=== PATIENT | female | born 1930 | race Caucasian/White ===

== ENCOUNTER 2016-11-11 08:17 | Emergency (ER) | payer OTHER, BC ==
[2016-11-11 08:22] VITALS: TEMP 98; BMI 30.9
--- NOTE | 2016-11-11 08:57 | PDOC ---
History of Present Illness - General History Source: Patient Exam Limitations: No Limitations - History of Present Illness Initial Comments: 11/11/16 08:59 The patient is a 89-year-old woman, accompanied by daughter, with a significant past medical history of hypertension, hypercholesterolemia, atrial fibrillation (on Eliquis), overactive bladder who presents to the emergency department for further evaluation for a possible allergic reaction. Patient states that she underwent an outpatient CTA, at approximately 12:45 PM, yesterday, as ordered by her [employer], Dr. Dashawn Doran. She received IV contrast. She states that she does not recall ever receiving IV contrast in the past. She woke up throughout the middle of the night with an itchy face. This morning, she woke up with worsening facial itchiness and felt as if her jaw was stiff. She denies any speech/swallowing difficulty. She now states that the itchy sensations have radiated up to her head. As per daughter, the patients face is swollen and red. She denies eating new foods. She denies exposure to new detergents/soaps.. She denies associated symptoms of chest pain, visual changes, shortness of breath, lightheadedness, dizziness, nausea, vomiting. Allergies: Tramadol. Meclizine (makes her disoriented) Past Surgical History: Pacemaker (1992). Bilateral total knee replacements(2000 , 2002) Social History: No tobacco or recreational drug use. She reports to social EtOH use. Primary Care Physician: Dr. Giacomo Dean [employer]: Dr. Dashawn Doran Machine Stone Polisher: Dr. Fran Null (Affiliated with [facility]) <Daniela Weaver - Last Filed: 11/11/16 10:02> - General History Source: Patient, Old Records Exam Limitations: No Limitations <Vania Restrepo - Last Filed: 11/11/16 10:37> - General Chief Complaint: Allergic Reaction Stated Complaint: ALLERGIC RXN Time Seen by Provider: 11/11/16 08:35 Past History <Daniela Weaver - Last Filed: 11/11/16 10:02> - Past Medical History Anemia: No Asthma: No Cancer: No Cardiac Disorders: Yes (A-FIB) CVA: No COPD: No CHF: No Dementia: No Diabetes: No GI Disorders: No Disorders: Yes (OVERACTIVE BLADDER) HTN: Yes (DX ) Hypercholesterolemia: Yes (DIET CONTROLLED) Liver Disease: No Seizures: No Thyroid Disease: No - Surgical History Abdominal Surgery: No Appendectomy: No Cardiac Surgery: Yes (PACEMAKER DEFIB) Cholecystectomy: No Lung Surgery: No Neurologic Surgery: No Orthopedic Surgery: No (RICHIE TOTAL KNEE REPLACEMENTS-2000 & 2002) - Psycho/Social/Smoking Cessation Hx Anxiety: No Suicidal Ideation: No Smoking Status: No Smoking History: Never smoked Number of Cigarettes Smoked Daily: 0 Hx Alcohol Use: Yes (SOCIAL) Drug/Substance Use Hx: No Substance Use Type: None Hx Substance Use Treatment: No <Vania Restrepo - Last Filed: 11/11/16 10:37> - Past Medical History Allergies/Adverse Reactions: Allergies Allergy/AdvReac Type Severity Reaction Status Date / Time No Known Allergies Allergy Verified 11/11/16 08:22 Home Medications: Ambulatory Orders Apixaban [Eliquis] 5 mg PO BID 11/11/16 Carvedilol [Coreg -] 3.125 mg PO BID 11/11/16 Diphenhydramine HCl [Benadryl -] 25 mg PO Q8H PRN #21 capsule 11/11/16 Famotidine [Pepcid -] 20 mg PO DAILY #7 tablet 11/11/16 Losartan Potassium 25 mg PO BID 11/11/16 Methenamine 500 mg PO BID 11/11/16 Prednisone [Deltasone -] 40 mg PO UTDICT #8 tablet 11/11/16 Review of Systems - Review of Systems Able to Perform ROS?: Yes Comments:: 11/11/16 09:01 CONSTITUTIONAL: Absent: fever, chills, diaphoresis, generalized weakness, malaise, loss of appetite HEENT: Present: +Jaw stiffness. Absent: rhinorrhea, nasal congestion, throat pain, throat swelling, difficulty swallowing, mouth swelling, ear pain, eye pain , visual Changes CARDIOVASCULAR: Absent: chest pain, syncope, palpitations, irregular heart rate , lightheadedness, peripheral edema RESPIRATORY: Absent: cough, shortness of breath, dyspnea with exertion, orthopnea, wheezing, stridor, hemoptysis GASTROINTESTINAL:Absent: abdominal pain, abdominal distension, nausea, vomiting , diarrhea, constipation, melena, hematochezia GENITOURINARY: Absent: dysuria, frequency, urgency, hesitancy, hematuria, flank pain, genital pain MUSCULOSKELETAL: Absent: myalgia, arthralgia, joint swelling SKIN: Present: Facial/ head itching Absent: pallor HEMATOLOGIC/IMMUNOLOGIC: Absent: easy bleeding, easy bruising, lymphadenopathy, frequent infections ENDOCRINE:Absent: unexplained weight gain, unexplained weight loss, heat intolerance, cold intolerance NEUROLOGIC: Absent: headache, focal weakness or paresthesias, dizziness, unsteady gait, seizure, mental status changes, bladder or bowel incontinence PSYCHIATRIC: Absent: anxiety, depression, suicidal or homicidal ideation, hallucinations <Daniela Weaver - Last Filed: 11/11/16 10:02> *Physical Exam - Vital Signs Last Vital Signs Temp Pulse Resp BP Pulse Ox 98.0 F 94 H 20 150/79 95 11/11/16 08:18 11/11/16 08:18 11/11/16 08:18 11/11/16 08:18 11/11/16 08:18 - Physical Exam Comments: 11/11/16 09:01 GENERAL: Well developed, well nourished. Awake and alert. No acute distress. HEENT: Normocephalic, atraumatic. PERRLA, EOMI. No conjunctival pallor. Sclera are non-icteric. Moist mucous membranes. Oropharynx is clear. There is no swelling of the lips and tongue. No stridor NECK: Supple. Full ROM. No JVD. CARDIOVASCULAR: Regular rate and rhythm. No murmurs, rubs, or gallops. PULMONARY: No evidence of respiratory distress. Lungs clear to auscultation bilaterally. No wheezing, rales or rhonchi. ABDOMINAL: Soft. Non-tender. Non-distended. No rebound or guarding. No organomegaly. Normoactive bowel sounds. MUSCULOSKELETAL: Normal range of motion at all joints. No bony deformities or tenderness. No CVA tenderness. EXTREMITIES: No cyanosis. No clubbing. +Bilateral pedal edema. No calf tenderness. SKIN: +There is erythema in the malar region with swelling of the face and underneath the eyes. There is erythematous slightly raised rashes diffusely on her face with scattered lesions on her upper extremities and back. NEUROLOGICAL: Alert, awake, appropriate. Cranial nerves 2-12 intact. Normal speech. PSYCHIATRIC: Cooperative. Good eye contact. Appropriate mood and affect. <Daniela Weaver - Last Filed: 11/11/16 10:02> - Vital Signs Last Vital Signs Temp Pulse Resp BP Pulse Ox 98.0 F 94 H 20 150/79 95 11/11/16 08:18 11/11/16 08:18 11/11/16 08:18 11/11/16 08:18 11/11/16 08:18 <Vania Restrepo - Last Filed: 11/11/16 10:37> Heart Score/ECG Review #1 11/11/16 10:03 Reviewed and interpreted by Dr. Vania Restrepo IMPRESSION: Paced at 76 bpm. 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 The patient has no airway compromise and is saturating well on room air. Differential diagnosis includes but is not limited to: ALLERGIC reaction, metabolic derangement, electrolyte abnormality, ACS. Plan: 1. EKG 2. Labs 3. Steroids 4. H1 and H2 blockade 5. Observe and reevaluate 11/11/16 10:35 Addendum: The patient has been observed in the ED after receiving Benadryl, prednisone and Pepcid. The facial swelling has reduced as well as the redness. The patient is feeling improved. The labs were reviewed and are noted in the EMR. The troponin is negative. The plan is to discharge the patient home with the same medications over the next 3-4 days. Follow-up with her primary care physician this week and return to the emergency department if her symptoms persist, worsen, or new symptoms arise. <Vania Restrepo - Last Filed: 11/11/16 10:37> *DC/Admit/Observation/Transfer - Attestations Scribe Attestion: 11/11/16 09:01 Documentation prepared by Daniela Weaver, acting as biomedical engineering director for Vania Restrepo MD. <Daniela Weaver - Last Filed: 11/11/16 10:02> - Discharge Dispostion Admit: No - Attestations Physician Attestion: 11/11/16 09:22 I, Dr. Vania Restrepo, attest that the scribes documentation that appears above has been prepared under my direction and personally reviewed by me in its entirety. I confirmed that the note above accurately reflects all work, treatment, procedures, and medical decision-making performed by me. <Vania Restrepo - Last Filed: 11/11/16 10:37> Diagnosis at time of Disposition: Rash and nonspecific skin eruption, Allergic reaction - Discharge Dispostion Disposition: HOME Condition at time of disposition: Stable - Prescriptions Prescriptions: Diphenhydramine HCl [Benadryl -] 25 mg PO Q8H PRN #21 capsule PRN Reason: itchiness Prednisone [Deltasone -] 40 mg PO UTDICT #8 tablet Famotidine [Pepcid -] 20 mg PO DAILY #7 tablet - Referrals Referrals: Giacomo Dean MD [Primary Care Provider] - - Patient Instructions Printed Discharge Instructions: DI for Adverse Drug Reaction -- Allergic Additional Instructions: You have been treated for an ALLERGIC reaction presumably due to intravenous contrast for the CAT scan that you had yesterday. He was given prednisone, Pepcid and Benadryl in the emergency department and you're being discharged on those same medications. The prednisone is 40 mg once daily, Benadryl 25 mg every 6-8 hours as needed for itchiness and rash. And Pepcid 20 mg once daily. Please follow-up with your primary care physician within the next 3-5 days and return to the emergency department if your symptoms persist, worsen, or new symptoms arise.
[2016-11-11] MEDS ORDERED: predniSONE 20 MG TABLET (UD) PO ONE (08:58)
[2016-11-11] MEDS ORDERED: FAMOTIDINE 20 MG/50 ML IVPB 50 ML IVPB ONE ×2 (08:58→09:11)
[2016-11-11] MEDS ORDERED: predniSONE 20 MG TABLET (UD) ONE (09:10)
[2016-11-11 09:19] LABS: BASOPHIL 0.9 % (0-2.0); EOSINOPHIL 3.8 % (0-4.5); MCH 29.3 pg (25.7-33.7); MCHC 33.7 g/dl (32.0-36.0); MEAN CELL VOLUME 86.9 fl (80-96); MEAN PLT VOLUME 7.8 fl (7.5-11.1); NEUTROPHILS 67.7 % (42.8-82.8); PLATELET COUNT 205 K/MM3 (134-434); RDW 13.7 % (11.6-15.6)
[2016-11-11 09:54] LABS: ALBUMIN 3.3 g/dl (3.4-5.0); ALK PHOS 58 U/L (45-117); ANION GAP 5 (8-16); BILIRUBIN,TOTAL 0.4 mg/dL (0.2-1.0); CALCIUM 8.7 mg/dL (8.5-10.1); CO2 26 mmol/L (21-32); CREATININE 1.1 mg/dL (0.55-1.02); GLUCOSE,RANDOM 94 mg/dL (74-106); SGOT/AST 15 U/L (15-37); SGPT/ALT 15 U/L (12-78); TOT PROT 6.2 g/dl (6.4-8.2)
[2016-11-11 09:56] LABS: TROPONIN I < 0.02 ng/ml (0.00-0.05)
[2016-11-11 11:07] VITALS: BP 156/83; PULSE 89
--- NOTE | 2016-11-11 16:28 | EKG ---
Test Reason : Blood Pressure : / mmHG Vent. Rate : 076 BPM Atrial Rate : 076 BPM P-R Int : 164 ms QRS Dur : 124 ms QT Int : 422 ms P-R-T Axes : 066 056 100 degrees QTc Int : 474 ms Atrial-sensed ventricular-paced rhythm Biventricular pacemaker detected ABNORMAL ECG WHEN COMPARED WITH ECG OF 21-JAN-2015 00:08, VENT. RATE HAS DECREASED BY 3 BPM Confirmed by VARUN KWON, KOLTON ([id number]) on 11/11/2016 4:28:34 PM Referred By: Confirmed By:KOLTON BOND MD
== END 2016-11-11 11:07 | disposition home or self-care (01) ==
LOC: JER 08:17
PROC: 3E033GC Introduction of Other Therapeutic Substance into Peripheral Vein, Percutaneous Approach (ICD-10-PCS; principal; 2016-11-11)
DX: L27.0 Generalized skin eruption due to drugs and medicaments taken internally (principal); T50.8X5A Adverse effect of diagnostic agents, initial encounter; Y92.013 Bedroom of single-family (private) house as the place of occurrence of the external cause; I10 Essential (primary) hypertension; I48.91 Unspecified atrial fibrillation; E78.00 Pure hypercholesterolemia, unspecified; Z86.718 Personal history of other venous thrombosis and embolism; Z79.01 Long term (current) use of anticoagulants; Z95.810 Presence of automatic (implantable) cardiac defibrillator
CPT/HCPCS: 36415; 80053; 82550; 84484; 85025; 93005; 93010; 96365; 96375; 99282-25

== ENCOUNTER 2017-08-04 09:34 | Observation (INO) | payer OTHER, BC ==
[2017-08-04 09:47] VITALS: BMI 30.9
--- NOTE | 2017-08-04 09:55 | PDOC ---
History of Present Illness - General History Source: Patient, Family Exam Limitations: No Limitations - History of Present Illness Initial Comments: 08/04/17 11:58 The patient is a 89 year-old female, accompanied by daughter, with a significant past medical history of hypertension, hyperlipidemia, COPD, atrial fibrillation (on Eliquis), overactive bladder, and frequent UTIs, who presents to the emergency department sent by PCP for evaluation of acute onset of dizziness and headache since this morning. The patient reports going to bed at approximately 20:45 last night at her baseline. This morning the patient reports calling her daughter due to her dizziness and headache. When daughter arrived on scene, she reports calling patients PCP, Dr. Marks, who suggested the patient come to the ED for further evaluation. Patient states her dizziness is exacerbated with movement, and alleviated when sitting still. Patient reports she has a history of vertigo in the past, but her symptoms today are not similar. As per daughter, patient had 1 episode of nonbloody/nonbilious vomiting in the waiting room. Pt also reports her chronic cough has also gotten worse over the last few days. Patient denies any associated abdominal pain, diarrhea, or constipation. She denies any recent head trauma, changes in vision , LOC, or weakness. She reports chills, but denies any fever. She denies any dysuria, hematuria, frequency, or urgency. She denies any recent travel or sick contacts. Last on antibiotics for UTI about 1 week ago. Allergies: Tramadol, Meclizine (makes her disoriented) Past Surgical History: Pacemaker (1992). Bilateral total knee replacements(2000 , 2002) Social History: No tobacco or recreational drug use. Social ETOH use. PCP: Dr. Dean Traffic Checker: Dr. Doran Urologist: Dr. Lo <Gloria Koch - Last Filed: 08/04/17 12:38> <Anastasia Ordaz - Last Filed: 08/04/17 13:02> - General Chief Complaint: Lightheaded Stated Complaint: DIZZINESS/SENT BY PCP Past History <Gloria Koch - Last Filed: 08/04/17 12:38> - Past Medical History Anemia: No Asthma: No Cancer: No Cardiac Disorders: Yes (A-FIB) CVA: No COPD: No CHF: No Dementia: No Diabetes: No GI Disorders: No Disorders: Yes (OVERACTIVE BLADDER) HTN: Yes (DX ) Hypercholesterolemia: Yes (DIET CONTROLLED) Liver Disease: No Seizures: No Thyroid Disease: No - Surgical History Abdominal Surgery: No Appendectomy: No Cardiac Surgery: Yes (PACEMAKER DEFIB) Cholecystectomy: No Lung Surgery: No Neurologic Surgery: No Orthopedic Surgery: No (RICHIE TOTAL KNEE REPLACEMENTS-2000 & 2002) - Suicide/Smoking/Psychosocial Hx Smoking Status: No Smoking History: Never smoked Number of Cigarettes Smoked Daily: 0 Hx Alcohol Use: Yes (SOCIAL) Drug/Substance Use Hx: No Substance Use Type: None Hx Substance Use Treatment: No <NassefYomna - Last Filed: 08/04/17 13:02> - Past Medical History Allergies/Adverse Reactions: Allergies Allergy/AdvReac Type Severity Reaction Status Date / Time No Known Allergies Allergy Verified 08/04/17 09:47 Home Medications: Ambulatory Orders Apixaban [Eliquis] 5 mg PO BID 08/04/17 Carvedilol [Coreg -] 3.125 mg PO BID 08/04/17 Cholecalciferol (Vitamin D3) [Vitamin D] 2,000 unit PO DAILY 08/04/17 Losartan Potassium [Cozaar -] 25 mg PO BID 08/04/17 Review of Systems - Review of Systems Able to Perform ROS?: Yes Comments:: 08/04/17 11:58 GENERAL/CONSTITUTIONAL: Yes chills. No fever . No weakness. HEAD, EYES, EARS, NOSE AND THROAT: No change in vision. No ear pain or discharge. No sore throat. GASTROINTESTINAL: Yes nausea and vomiting. No abdominal pain, diarrhea, constipation, melena, or hematochezia.. GENITOURINARY: No dysuria, frequency, or change in urination. CARDIOVASCULAR: No chest pain or shortness of breath. RESPIRATORY: Yes cough. No wheezing, or hemoptysis. MUSCULOSKELETAL: No joint or muscle swelling or pain. No neck or back pain. SKIN: No rash NEUROLOGIC: Yes dizziness, headache. No loss of consciousness, or change in strength/sensation. ENDOCRINE: No increased thirst. No abnormal weight change. HEMATOLOGIC/LYMPHATIC: No anemia, easy bleeding, or history of blood clots. ALLERGIC/IMMUNOLOGIC: No hives or skin allergy. <KochGiomilsy - Last Filed: 08/04/17 12:38> *Physical Exam - Vital Signs Last Vital Signs Temp Pulse Resp BP Pulse Ox 98.5 F 52 L 18 197/64 94 L 08/04/17 09:44 08/04/17 09:44 08/04/17 09:44 08/04/17 09:44 08/04/17 09:44 - Physical Exam Comments: 08/04/17 11:58 GENERAL: Awake, alert, and fully oriented. Appears uncomfortable. HEAD: No signs of trauma EYES: PERRLA, EOMI, sclera anicteric, conjunctiva clear. No nystagmus. Patient complains of dizziness on lateral gaze bilaterally. ENT: Auricles normal inspection, hearing grossly normal, nares patent, oropharynx clear without exudates. Moist mucosa NECK: Normal ROM, supple, no lymphadenopathy, JVD, or masses LUNGS: Breath sounds equal, clear to auscultation bilaterally. No wheezes, and no crackles HEART: Irregularly irregular. Regular rate, no murmurs, rubs or gallops ABDOMEN: Soft, nontender, normoactive bowel sounds. No guarding, no rebound. No masses EXTREMITIES: Normal range of motion, no edema. No clubbing or cyanosis. No cords, erythema, or tenderness BACK: No midline spinal tenderness in cervical/thoracic/lumbar region NEUROLOGICAL: Normal speech, cranial nerves intact, negative pronator drift, 5/ 5 strength in all 4 extremities, normal sensation to light touch in all 4 extremities, normal cerebellar exam, normal reflexes and tone. Gait deferred. SKIN: Warm, Dry, normal turgor, no rashes or lesions noted. <Koch,Giomilsy - Last Filed: 08/04/17 12:38> - Vital Signs Last Vital Signs Temp Pulse Resp BP Pulse Ox 98.5 F 52 L 18 197/64 94 L 08/04/17 09:44 08/04/17 09:44 08/04/17 09:44 08/04/17 09:44 08/04/17 09:44 <Anastasia Ordaz - Last Filed: 08/04/17 13:02> ED Treatment Course - LABORATORY CBC & Chemistry Diagram: 08/04/17 10:30 08/04/17 10:30 - ADDITIONAL ORDERS Additional order review: Laboratory Results 08/04/17 08/04/1708/04/18 10:30 10:30 10:30 PT with INR INR PTT (Actin FS) 32.6 Sodium 141 Potassium 4.6 Chloride 107 Carbon Dioxide 27 Anion Gap 7 L BUN 19 H Creatinine 1.2 H Creat Clearance w eGFR 42.60 Random Glucose 103 Calcium 8.4 L Total Bilirubin 0.6 D AST 22 ALT 18 Alkaline Phosphatase 66 Creatine Kinase 59 Troponin I < 0.02 Total Protein 7.1 Albumin 3.5 Triglycerides 111 Cholesterol 190 Total LDL Cholesterol 124 H HDL Cholesterol 51 Blood Type Cancelled Antibody Screen Cancelled 08/04/17 10:30 PT with INR 16.70 H INR 1.48 H D PTT (Actin FS) Sodium Potassium Chloride Carbon Dioxide Anion Gap BUN Creatinine Creat Clearance w eGFR Random Glucose Calcium Total Bilirubin AST ALT Alkaline Phosphatase Creatine Kinase Troponin I Total Protein Albumin Triglycerides Cholesterol Total LDL Cholesterol HDL Cholesterol Blood Type Antibody Screen 08/04/17 10:30 RBC 4.79 MCV 87.7 MCHC 32.6 RDW 13.6 MPV 7.5 Neutrophils % 72.4 Lymphocytes % 15.9 D Monocytes % 9.1 Eosinophils % 2.3 Basophils % 0.3 - RADIOLOGY Radiograph Interpretation: 08/04/17 12:00 EXAM: Head CT INTERPRETED BY: Dr. Iqbal REVIEWED BY: Dr. Ordaz IMPRESSION: There is no evidence of acute intracranial hemorrhage, mass lesions or infarctions. There is a moderate degree of diffuse cerebral atrophy with sulcal widening and ventricular dilatation. Extensive hypodense changes are noted throughout the periventricular white matter consistent with chronic, small vessel ischemia. There is no evidence of fracture or acute bony abnormalities. The visualized paranasal sinuses are clear. No evidence of acute intracranial pathology or significant change since 01/21/2015. EXAM: CXR INTERPRETED BY: Dr. Corona REVIEWED BY: Dr. Ordaz IMPRESSION: Large heart. Pacemaker. Questionable atelectasis or infiltrate left base. Correlation recommended. - Medications Given in the ED: ED Medications Discontinued Medications Generic Name Dose Route Start Last Admin Trade Name Freq PRN Reason Stop Dose Admin Sodium Chloride 500 mls @ 500 mls/hr 08/04/17 10:08 08/04/17 10:41 Normal Saline - IV 08/04/17 11:07 500 mls/hr ASDIR STA Administration Ondansetron HCl 4 mg 08/04/17 10:10 08/04/17 10:41 Zofran Injection IVPUSH 08/04/17 10:11 4 mg ONCE ONE Administration <AugustCristymanisha - Last Filed: 08/04/17 12:38> - LABORATORY CBC & Chemistry Diagram: 08/04/17 10:30 08/04/17 10:30 <Anastasia Ordaz - Last Filed: 08/04/17 13:02> Medical Decision Making - Medical Decision Making 08/04/17 11:59 First call placed to Dr. Doran at 12:00. Awaiting call back from Dr. De La Cruz who is economics lecturer. Second call placed to Dr. De La Cruz at 12:36. Awaiting call back. <AugustCristymanisha - Last Filed: 08/04/17 12:38> - Medical Decision Making 08/04/17 10:24 87-year-old female with multiple medical problems including atrial fibrillation on Eliquis, defibrillator, pacemaker presents with dizziness since waking up this morning associated with nausea and 1 episode of nonbloody nonbilious emesis in our waiting room. Vitals remarkable for hypertension. Exam with inducible dizziness and nausea on lateral gaze bilaterally. Differential includes but is not limited to CVA versus TIA versus peripheral vertigo. Patient is unable to get an MRI due to her defibrillator and cannot get IV contrast. We'll obtain a CTH. Reports that meclizine and tramadol make her disoriented and thus we'll attempt to treat her symptoms with antipyretics and fluids and consider Ativan if no relief. 08/04/17 12:55 Labs unremarkable. UA with unlikely UTI. CXR with possible infiltrate. On re- exam, lungs diminished at the bases. In concert with increased cough per patient , will treat with ceftriaxone and azithro and admit. Discussed with Dr. De La Cruz (covering for Dr. Doran) who agrees with plan. Discussed with Dr. Marks who will admit pt to tele obs. Case discussed in detail with admitting physician including history, physical exam and ancillary studies. Admitting physician has assumed care for the patient, will follow all pending diagnostics and will complete the evaluation and treatment. <Anastasia Ordaz - Last Filed: 08/04/17 13:02> *DC/Admit/Observation/Transfer - Attestations Scribe Attestion: 08/04/17 11:58 Documentation prepared by Gloria Koch, acting as medical care evaluation specialist for Anastasia Ordaz MD. <Gloria Koch - Last Filed: 08/04/17 12:38> - Discharge Dispostion Admit: Yes - Attestations Physician Attestion: 08/04/17 13:02 I, Dr. Anastasia Ordaz MD, attest that this document has been prepared under my direction and personally reviewed by me in its entirety. I further attest, that it accurately reflects all work, treatment, procedures and medical decision -making performed by me. <Anastasia Ordaz - Last Filed: 08/04/17 13:02> Diagnosis at time of Disposition: Dizziness, Pneumonia - Discharge Dispostion Condition at time of disposition: Stable - Referrals Referrals: Giacomo Dean MD [Primary Care Provider] -
[2017-08-04] MEDS ORDERED: SODIUM CHLORIDE 500 ML IV STA (10:08)
[2017-08-04] MEDS ORDERED: ONDANSETRON 4 MG/2 ML VIAL IVPUSH ONE (10:10)
[2017-08-04] MEDS ORDERED: MECLIZINE HCL 25 MG TABLET (FP) PO ONE (10:10)
[2017-08-04] MEDS ORDERED: ONDANSETRON 4 MG/2 ML VIAL ONE ×2 (10:19→10:20)
[2017-08-04 10:44] LABS: BASO % 0.3 % (0-2.0); EOS % 2.3 % (0-4.5); HEMATOCRIT 42.1 % (32.4-45.2); HEMOGLOBIN 13.7 GM/dL (10.7-15.3); LYMPH % 15.9 % (8-40); MCH 28.6 pg (25.7-33.7); MCHC 32.6 g/dl (32.0-36.0); MEAN CELL VOLUME 87.7 fl (80-96); MEAN PLT VOLUME 7.5 fl (7.5-11.1); MONO % 9.1 % (3.8-10.2); NEUT % 72.4 % (42.8-82.8); PLATELET COUNT 239 K/MM3 (134-434); RBC 4.79 M/mm3 (3.60-5.2); RDW 13.6 % (11.6-15.6); WHITE BLOOD COUNT 5.4 K/mm3 (4.0-10.0)
[2017-08-04 11:03] LABS: INR 1.48 (0.82-1.09); PROTHROMBIN TIME (PATIENT) 16.7 SEC (9.98-11.88)
[2017-08-04 11:07] LABS: ALBUMIN 3.5 g/dl (3.4-5.0); ANION GAP 7 (8-16); BILIRUBIN,TOTAL 0.6 mg/dL (0.2-1.0); BLOOD UREA NITROGEN 19 mg/dL (7-18); CALCIUM 8.4 mg/dL (8.5-10.1); CHLORIDE 107 mmol/L (98-107); CHOLESTEROL 190 mg/dL (50-200); CO2 27 mmol/L (21-32); CREATININE 1.2 mg/dL (0.55-1.02); GLUCOSE,RANDOM 103 mg/dL (74-106); LDL CHOLESTEROL (ONLY SJRH) 124 mg/dL (5-100); SGPT/ALT 18 U/L (12-78); SODIUM 141 mmol/L (136-145); TOT PROT 7.1 g/dl (6.4-8.2); TRIGLYCERIDES 111 mg/dL (35-160)
[2017-08-04 11:08] LABS: ALK PHOS 66 U/L (45-117); HDL CHOLESTEROL 51 mg/dL (40-60)
[2017-08-04 11:12] LABS: POTASSIUM 4.6 mmol/L (3.5-5.1); SGOT/AST 22 U/L (15-37)
[2017-08-04] MEDS ORDERED: METOCLOPRAMIDE HCL INJECTION 10 MG/2 ML VIAL IVPUSH ONE (11:41)
--- NOTE | 2017-08-04 12:03 | EKG ---
Test Reason : Blood Pressure : / mmHG Vent. Rate : 083 BPM Atrial Rate : 083 BPM P-R Int : 132 ms QRS Dur : 128 ms QT Int : 418 ms P-R-T Axes : 079 -38 104 degrees QTc Int : 491 ms Atrial-sensed ventricular-paced rhythm ABNORMAL ECG Confirmed by MD GUILLERMO, TESS ([id number]) on 08/04/2017 12:03:07 PM Referred By: Confirmed By:TESS LI MD
[2017-08-04 12:16] LABS: URINE APPEARANCE CLEAR; URINE BILIRUBIN NEGATIVE (NEGATIVE); URINE BLOOD NEGATIVE (NEGATIVE); URINE COLOR LTYELLOW; URINE GLUCOSE (UA) NEGATIVE (NEGATIVE); URINE KETONE NEGATIVE (NEGATIVE); URINE LEUK ESTERASE TRACE (NEGATIVE); URINE NITRITE NEGATIVE (NEGATIVE); URINE PROTEIN NEGATIVE (NEGATIVE); URINE UROBILINOGEN NEGATIVE mg/dL (0.2-1.0)
[2017-08-04 12:25] LABS: EPI CELLS RARE /HPF (FEW); URINE BACTERIA RARE /hpf (NONE SEEN); URINE HYALINE CAST 1 /lpf; URINE MUCUS RARE
[2017-08-04] MEDS ORDERED: METOCLOPRAMIDE HCL INJECTION 10 MG/2 ML VIAL ONE (12:34)
[2017-08-04] MEDS ORDERED: CEFTRIAXONE 1 GM in DEXTROSE 5%-WATER - 50 ML IVPB ONE (12:36)
[2017-08-04] MEDS ORDERED: AZITHROMYCIN IVPB 500 MG in DEXTROSE 5%-WATER - 250 ML IVPB ONE (12:39)
[2017-08-04] MEDS ORDERED: CEFTRIAXONE 1 GM/50 ML BAG ONE (13:21)
[2017-08-04] MEDS ORDERED: AZITHROMYCIN IVPB 250 ML IVPB ONE (13:21)
--- NOTE | 2017-08-04 13:30 | HP ---
Admitting History and Physical - Admission Chief Complaint: dizziness, lightheaded, nausea History of Present Illness: Has had a slight cough for a few days now, but when she woke up today patient flet very dizzy and nauseous, had to go back to bed. Continued to have symptoms , so patient called her daughter, and when symptoms did not improve was advised to come to the emergency room for evaluation. Does have a history of heart arrythmia and is on Eliquis and is s/p PPM placement. 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 Two years ago was admitted here and then [facility] also for vertigo, but gets very confused when on meclizine. Received some IVF and feels a little better now, but still has dizziness and some nausea. History Source: Patient, Family Member, Medical Record Limitations to Obtaining History: No Limitations - Past Medical History Cardiovascular: Yes: AFIB, HTN, Hyperlipdemia Renal/: Yes: Other (overactive bladder) Additional Past Medical History: vitamin D deficiency - Past Surgical History Past Surgical History: Yes: AICD (/ PPM), Joint Replacement (bilateral knee replacments) - Smoking History Smoking history: Never smoked Aproximately how many cigarettes per day: 0 - Alcohol/Substance Use Hx Alcohol Use: Yes (SOCIAL) History of Substance Use: reports: None - Social History ADL: Independent History of Recent Travel: No Home Medications - Allergies Allergies/Adverse Reactions: Allergies Allergy/AdvReac Type Severity Reaction Status Date / Time tramadol Allergy Verified 08/04/17 13:33 meclizine AdvReac Verified 08/04/17 13:34 - Home Medications Home Medications: Ambulatory Orders Apixaban [Eliquis] 5 mg PO BID 08/04/17 Carvedilol [Coreg -] 3.125 mg PO BID 08/04/17 Cholecalciferol (Vitamin D3) [Vitamin D] 2,000 unit PO DAILY 08/04/17 Losartan Potassium [Cozaar -] 25 mg PO BID 08/04/17 Family Disease History - Family Disease History Family Disease History: Diabetes: Brother Review of Systems - Review of Systems Constitutional: reports: Weakness, Other (headache on right side). denies: Chills Eyes: reports: No Symptoms HENT: denies: Difficult Swallowing, Throat Pain Cardiovascular: denies: Chest Pain, Palpitations, Shortness of Breath Respiratory: reports: Cough. denies: Hemoptysis, SOB, Wheezing Gastrointestinal: denies: Abdominal Pain, Diarrhea, Melena Genitourinary: reports: Other (did have recent UTI, unable to complete treatment given to her). denies: Burning, Discharge Musculoskeletal: denies: Back Pain Physical Examination Vital Signs: Vital Signs Temperature 98.5 F 08/04/17 09:44 Pulse Rate 52 L 08/04/17 09:44 Respiratory Rate 18 08/04/17 09:44 Blood Pressure 197/64 08/04/17 09:44 O2 Sat by Pulse Oximetry (%) 94 L 08/04/17 09:44 Constitutional: Yes: No Distress, Calm Eyes: Yes: Conjunctiva Clear, EOM Intact, PERRL HENT: Yes: Atraumatic, Normocephalic Neck: Yes: Supple, Trachea Midline Cardiovascular: Yes: Regular Rate and Rhythm, S1, S2. No: Murmur Respiratory: Yes: Regular, CTA Bilaterally Gastrointestinal: Yes: Normal Bowel Sounds, Soft. No: Distention, Tenderness Edema: No Neurological: Yes: Alert, Oriented Labs: CBC, BMP 08/04/17 10:30 08/04/17 10:30 Imaging - Results Chest X-ray: Report Reviewed (Left lower lobe questionable infiltrate) Cat Scan: Report Reviewed (head: no acute intracranial pathology) Problem List - Problems (1) Dizziness Assessment/Plan: -likely vertigo from infectious process with sinuses/ pneumonia -as not tolerant of meclizine will start low-dose IVF and antinausea medication Code(s): R42 - DIZZINESS AND GIDDINESS (2) Pneumonia Assessment/Plan: -start rocephin/ zithromax for CAP Code(s): J18.9 - PNEUMONIA, UNSPECIFIED ORGANISM (3) Atrial fibrillation Assessment/Plan: -on eliquis, rate controlled Code(s): I48.91 - UNSPECIFIED ATRIAL FIBRILLATION (4) HTN (hypertension) Assessment/Plan: -cnt antihypertensives Code(s): I10 - ESSENTIAL (PRIMARY) HYPERTENSION
[2017-08-04] MEDS ORDERED: ONDANSETRON 4 MG/2 ML VIAL IVPB PRN (13:52)
[2017-08-04] MEDS ORDERED: SODIUM CHLORIDE 0.45% 1,000 ML IV SCH (14:00)
[2017-08-04] MEDS: LOSARTAN POTASSIUM 25 MG TABLET PO SCH (21:56)
[2017-08-04] MEDS: APIXABAN 5 MG TABLET PO SCH (21:56)
[2017-08-04] MEDS: CARVEDILOL 3.125 MG TABLET (FP) PO SCH (21:56)
[2017-08-05 07:06] LABS: BASO % 0.6 % (0-2.0); EOS % 3.3 % (0-4.5); HEMATOCRIT 34.7 % (32.4-45.2); HEMOGLOBIN 11.4 GM/dL (10.7-15.3); LYMPH % 26.1 % (8-40); MCH 28.8 pg (25.7-33.7); MCHC 32.9 g/dl (32.0-36.0); MEAN CELL VOLUME 87.7 fl (80-96); MEAN PLT VOLUME 7.4 fl (7.5-11.1); MONO % 13.8 % (3.8-10.2); NEUT % 56.2 % (42.8-82.8); PLATELET COUNT 173 K/MM3 (134-434); RBC 3.96 M/mm3 (3.60-5.2); RDW 13.4 % (11.6-15.6); WHITE BLOOD COUNT 4.4 K/mm3 (4.0-10.0)
[2017-08-05 07:18] LABS: CHLORIDE 107 mmol/L (98-107); POTASSIUM 4.2 mmol/L (3.5-5.1); SODIUM 142 mmol/L (136-145)
[2017-08-05 07:30] LABS: ALBUMIN 2.9 g/dl (3.4-5.0); ALK PHOS 52 U/L (45-117); ANION GAP 7 (8-16); BILIRUBIN,TOTAL 0.4 mg/dL (0.2-1.0); BLOOD UREA NITROGEN 17 mg/dL (7-18); CALCIUM 8.2 mg/dL (8.5-10.1); CO2 28 mmol/L (21-32); CREATININE 1.1 mg/dL (0.55-1.02); GLUCOSE,RANDOM 91 mg/dL (74-106); SGOT/AST 13 U/L (15-37); SGPT/ALT 15 U/L (12-78); TOT PROT 5.6 g/dl (6.4-8.2)
[2017-08-05] MEDS ORDERED: CHOLECALCIFEROL (VITAMIN D3) 1,000 UNIT TABLET (FP) PO SCH (10:00)
[2017-08-05] MEDS ORDERED: CEFTRIAXONE 1 G/50 ML PREMIX 50 ML IVPB SCH (10:00)
[2017-08-05] MEDS ORDERED: AZITHROMYCIN IVPB 500 MG in DEXTROSE 5%-WATER - 250 ML IVPB SCH (10:00)
[2017-08-05 10:09] VITALS: BP 126/82; PULSE 78; TEMP 98.2
[2017-08-05] MEDS: CARVEDILOL 3.125 MG TABLET (FP) PO SCH (10:10)
[2017-08-05] MEDS: LOSARTAN POTASSIUM 25 MG TABLET PO SCH (10:10)
[2017-08-05] MEDS: APIXABAN 5 MG TABLET PO SCH (10:10)
--- NOTE | 2017-08-05 12:25 | DS ---
Physical Examination Vital Signs: Vital Signs Temperature 98.2 F 08/05/17 10:00 Pulse Rate 78 08/05/17 10:00 Respiratory Rate 14 08/05/17 10:00 Blood Pressure 126/82 08/05/17 10:00 O2 Sat by Pulse Oximetry (%) 95 08/04/17 21:00 Constitutional: Yes: No Distress, Calm Neck: Yes: Supple, Trachea Midline Cardiovascular: Yes: Regular Rate and Rhythm, S1, S2. No: Murmur Respiratory: Yes: Regular, CTA Bilaterally. No: Rales, Rhonchi, Wheezes Gastrointestinal: Yes: Normal Bowel Sounds, Soft. No: Distention, Tenderness Edema: No Psychiatric: Yes: Alert, Oriented Labs: CBC, BMP 08/05/17 05:05 08/05/17 05:05 Discharge Summary Reason For Visit: DIZZINESS, PNEUMONIA Current Active Problems Atrial fibrillation (Acute) Dizziness (Acute) Pneumonia (Acute) Hospital Course: 87 yo female presented to hospital after awakening with dizziness/ nausea, concern for her heart, given history of heart disease. In ED cardiac eval was normal, vitals stable, but having dizziness and nausea with it. CT head negative (cannot have MRI due to AICD), bloodwork unremarkable. Was found to have small infiltrate (vs atalectasis) on CXR and started on antibiotics for pneumonia. Received IVF and dizziness felt better (cannot take meclizine due to prior altered mental status on medication). Did have another episode of dizziness this morning, but passed without vomiting. Was able to sit up and eat breakfast with no problems. Likely viral labyrinthitis causing her current symptoms. Patient getting 2nd doses of abx today, then to be discharged with daughter. Will give levaquin for 8 more doses starting tomorrow. Condition: Stable - Instructions Diet, Activity, Other Instructions: low sodium diet Referrals: Giacomo Dean MD [Primary Care Provider] - Disposition: HOME - Home Medications Comprehensive Discharge Medication List: Ambulatory Orders Apixaban [Eliquis] 5 mg PO BID 08/04/17 Carvedilol [Coreg -] 3.125 mg PO BID 08/04/17 Cholecalciferol (Vitamin D3) [Vitamin D3] 2,000 unit PO DAILY 08/04/17 Losartan Potassium [Cozaar -] 25 mg PO BID 08/04/17 Levofloxacin [Levaquin] 250 mg PO DAILY #8 tablet 08/05/17 Ondansetron [Zofran -] 4 mg PO Q6H PRN #30 tablet 08/05/17
== END 2017-08-05 14:32 | disposition home or self-care (01) ==
LOC: JER 09:34 → JERBED 13:02 → J4W 16:05
PROVIDERS: ADMIT Specialist; ATTEND Specialist
PROC: 3E03329 Introduction of Other Anti-infective into Peripheral Vein, Percutaneous Approach (ICD-10-PCS; principal; 2017-08-04)
PROC: 3E033GC Introduction of Other Therapeutic Substance into Peripheral Vein, Percutaneous Approach (ICD-10-PCS; 2017-08-04)
PROC: 3E0337Z Introduction of Electrolytic and Water Balance Substance into Peripheral Vein, Percutaneous Approach (ICD-10-PCS; 2017-08-04)
DX: J18.9 Pneumonia, unspecified organism (principal); R42 Dizziness and giddiness; R51 Headache; I10 Essential (primary) hypertension; I48.91 Unspecified atrial fibrillation; E78.5 Hyperlipidemia, unspecified; J44.9 Chronic obstructive pulmonary disease, unspecified; N32.81 Overactive bladder; Z87.440 Personal history of urinary (tract) infections; Z88.8 Allergy status to other drugs, medicaments and biological substances; Z95.0 Presence of cardiac pacemaker; Z96.653 Presence of artificial knee joint, bilateral
CPT/HCPCS: 36415; 70450-TC; 71045-TC; 80053; 81003; 81015; 82465; 82550; 83718; 83721; 84478; 84484; 85025; 85610; 85730; 93005; 93010; 96361; 96365; 96367; 96375; 99282-25; G0378

== ENCOUNTER 2017-08-15 10:14 | Inpatient (IN) | payer OTHER, BC ==
--- NOTE | 2017-08-15 10:47 | PDOC ---
History of Present Illness <Betty Grimes - Last Filed: 08/15/17 14:02> - General History Source: Patient Exam Limitations: No Limitations - History of Present Illness Initial Comments: 08/15/17 14:58 Patient is an 87 year old female with a significant past medical history of AFIB , HTN, Pacemaker, Hyperlipidemia, overactive bladder, vitamin D deficiency, who presents to the ED with complaints of shingles that began earlier this week. As per patient's daughter, patient began to experience shingles on her right side that began to spread to her neck and behind her head and to her right ear. She reports calling patient's PCP and was advised to bring patient into the ED for further evaluation. Patient reports experiencing intermittent headache that began yesterday, stating that she has been unable to sleep secondary to head pain. She reports experiencing decreased appetite as well as dry cough and right sided chest pain. As per patient's son, patient has been experiencing intermittent weakness and SOB with exertion. Denies nausea, vomiting. Denies fevers, chills. Denies contact with sick individuals, out of state traveling. Denies any other symptoms. Allergies: Tramadol, Meclizine Social history: Lives alone. No smoking, Social drinker. No illicit drugs. Surgical history: AICD (/ PPM), Joint Replacement (bilateral knee replacements) PMD: Dr. Dean <Noé Slater - Last Filed: 08/15/17 15:00> - General Chief Complaint: Weakness Stated Complaint: Headache/SHINGLES Time Seen by Provider: 08/15/17 10:44 Past History - Past Medical History Anemia: No Asthma: No Cancer: No Cardiac Disorders: Yes (A-FIB) CVA: No COPD: No CHF: No Dementia: No Diabetes: No GI Disorders: No Disorders: Yes (OVERACTIVE BLADDER) HTN: Yes (DX ) Hypercholesterolemia: Yes (DIET CONTROLLED) Liver Disease: No Seizures: No Thyroid Disease: No - Surgical History Abdominal Surgery: No Appendectomy: No Cardiac Surgery: Yes (PACEMAKER DEFIB) Cholecystectomy: No Lung Surgery: No Neurologic Surgery: No Orthopedic Surgery: No (RICHIE TOTAL KNEE REPLACEMENTS-2000 & 2002) - Suicide/Smoking/Psychosocial Hx Smoking Status: No Smoking History: Never smoked Have you smoked in the past 12 months: No Number of Cigarettes Smoked Daily: 0 Information on smoking cessation initiated: No Hx Alcohol Use: No Drug/Substance Use Hx: No Substance Use Type: None Hx Substance Use Treatment: No <Betty Grimes - Last Filed: 08/15/17 14:02> <Noé Slater - Last Filed: 08/15/17 15:00> - Past Medical History Allergies/Adverse Reactions: Allergies Allergy/AdvReac Type Severity Reaction Status Date / Time tramadol Allergy Verified 08/04/17 13:33 meclizine AdvReac Verified 08/04/17 13:34 Home Medications: Ambulatory Orders Apixaban [Eliquis] 5 mg PO BID 08/04/17 Carvedilol [Coreg -] 3.125 mg PO BID 08/04/17 Cholecalciferol (Vitamin D3) [Vitamin D3] 2,000 unit PO DAILY 08/04/17 Losartan Potassium [Cozaar -] 25 mg PO BID 08/04/17 Levofloxacin [Levaquin] 250 mg PO DAILY #8 tablet 08/05/17 Ondansetron [Zofran -] 4 mg PO Q6H PRN #30 tablet 08/05/17 Review of Systems - Review of Systems Able to Perform ROS?: Yes Comments:: 08/15/17 14:58 GENERAL/CONSTITUTIONAL: +General weakness. No fever or chills. HEAD, EYES, EARS, NOSE AND THROAT: No change in vision. No ear pain or discharge. No sore throat. GASTROINTESTINAL: No nausea, vomiting, diarrhea or constipation. GENITOURINARY: No dysuria, frequency, or change in urination. CARDIOVASCULAR: +Right sided chest pain. +SOB RESPIRATORY: No cough, wheezing, or hemoptysis. MUSCULOSKELETAL: No joint or muscle swelling or pain. No neck or back pain. SKIN: +Right sided shingles. NEUROLOGIC: No headache, vertigo, loss of consciousness, or change in strength/ sensation. ENDOCRINE: No increased thirst. No abnormal weight change. HEMATOLOGIC/LYMPHATIC: No anemia, easy bleeding, or history of blood clots. ALLERGIC/IMMUNOLOGIC: No hives or skin allergy. All Other Systems: Reviewed and Negative <Noé Slater - Last Filed: 08/15/17 15:00> *Physical Exam - Vital Signs Last Vital Signs Temp Pulse Resp BP Pulse Ox 97.1 F L 80 20 163/88 94 L 08/15/17 10:25 08/15/17 10:25 08/15/17 10:25 08/15/17 10:25 08/15/17 10:25 <Betty Grimes - Last Filed: 08/15/17 14:02> - Vital Signs Last Vital Signs Temp Pulse Resp BP Pulse Ox 97.1 F L 80 20 163/88 94 L 08/15/17 10:25 08/15/17 10:25 08/15/17 10:25 08/15/17 10:25 08/15/17 10:25 - Physical Exam Comments: 08/15/17 14:59 GENERAL: +General weakness. Awake, alert, and fully oriented, in no acute distress HEAD: +Right sided healing shingles to right side of face. No signs of trauma EYES: PERRLA, EOMI, sclera anicteric, conjunctiva clear ENT: Auricles normal inspection, hearing grossly normal, nares patent, oropharynx clear without exudates. Moist mucosa NECK: Normal ROM, supple, no lymphadenopathy, JVD, or masses LUNGS: +Lungs diminished at bases. Breath sounds equal, clear to auscultation bilaterally. No wheezes, and no crackles HEART: Regular rate and rhythm, normal S1 and S2, no murmurs, rubs or gallops ABDOMEN: Soft, nontender, normoactive bowel sounds. No guarding, no rebound. No masses EXTREMITIES: Normal range of motion, no edema. No clubbing or cyanosis. No cords, erythema, or tenderness NEUROLOGICAL: Cranial nerves II through XII grossly intact. Normal speech, normal gait SKIN: Warm, Dry, normal turgor, no rashes or lesions noted. <Noé Slater - Last Filed: 08/15/17 15:00> Heart Score/ECG Review - ECG Intrepretation Comment:: 08/15/17 12:11 paced at 83, no acute st/t wave findings <Betty Grimes - Last Filed: 08/15/17 14:02> ED Treatment Course - LABORATORY CBC & Chemistry Diagram: 08/15/17 11:24 08/15/17 11:24 <Betty Grimes - Last Filed: 08/15/17 14:02> - LABORATORY CBC & Chemistry Diagram: 08/15/17 11:24 08/15/17 11:24 - ADDITIONAL ORDERS Additional order review: Laboratory Results 08/15/17 08/15/17 08/15/17 11:34 11:24 11:24 PT with INR INR PTT (Actin FS) Sodium 142 Potassium 4.2 Chloride 109 H Carbon Dioxide 26 Anion Gap 7 L BUN 23 H Creatinine 1.1 H Creat Clearance w eGFR 47.09 Random Glucose 98 Lactic Acid 0.7 Calcium 8.4 L Magnesium 2.2 Total Bilirubin 0.4 AST 12 L ALT 17 Alkaline Phosphatase 60 Creatine Kinase 27 Troponin I < 0.02 B-Natriuretic Peptide 1666.90 H Total Protein 6.9 Albumin 3.5 Urine Color Ltyellow Urine Appearance Cloudy Urine pH 5.0 Ur Specific [place] 1.015 Urine Protein Negative Urine Glucose (UA) Negative Urine Ketones Negative Urine Blood Negative Urine Nitrite Negative Urine Bilirubin Negative Urine Urobilinogen Negative Ur Leukocyte Esterase 2+ H Urine WBC (Auto) 13 Urine RBC (Auto) 3 Ur Epithelial Cells Many Urine Bacteria Rare Hyaline Casts 3 Urine Mucus Rare 08/15/17 11:24 PT with INR 16.70 H INR 1.48 H PTT (Actin FS) 33.7 Sodium Potassium Chloride Carbon Dioxide Anion Gap BUN Creatinine Creat Clearance w eGFR Random Glucose Lactic Acid Calcium Magnesium Total Bilirubin AST ALT Alkaline Phosphatase Creatine Kinase Troponin I B-Natriuretic Peptide Total Protein Albumin Urine Color Urine Appearance Urine pH Ur Specific [place] Urine Protein Urine Glucose (UA) Urine Ketones Urine Blood Urine Nitrite Urine Bilirubin Urine Urobilinogen Ur Leukocyte Esterase Urine WBC (Auto) Urine RBC (Auto) Ur Epithelial Cells Urine Bacteria Hyaline Casts Urine Mucus 08/15/17 11:24 RBC 4.58 MCV 87.8 MCHC 32.8 RDW 13.6 MPV 7.3 L Neutrophils % 61.0 Lymphocytes % 24.8 Monocytes % 10.6 H Eosinophils % 2.8 Basophils % 0.8 - Medications Given in the ED: ED Medications Discontinued Medications Generic Name Dose Route Start Last Admin Trade Name Freq PRN Reason Stop Dose Admin Acetaminophen 1,000 mg 08/15/17 11:01 08/15/17 12:59 Ofirmev Injection - IVPB 08/15/17 11:02 1,000 mg ONCE ONE Administration Diphenhydramine HCl 12.5 mg 08/15/17 11:01 08/15/17 12:59 Benadryl Injection - IVPUSH 08/15/17 11:02 12.5 mg ONCE ONE Administration Metoclopramide HCl 10 mg 08/15/17 11:01 08/15/17 13:10 Reglan Injection - IVPUSH 08/15/17 11:02 10 mg ONCE ONE Administration Sodium Chloride 1,000 ml 08/15/17 11:01 08/15/17 12:59 Normal Saline - IV 08/15/17 11:02 1,000 ml ONCE ONE Administration <Noé Slater - Last Filed: 08/15/17 15:00> Medical Decision Making - Medical Decision Making 08/15/17 12:07 a/p: 87yo female with recent dx of shingles c/o R lateral neck pain, hardy, decreased po intake and recent dx of pna -weak -unable to ambulate -had 20 of 21 tabs of valtrex 1g -had gabapentin for pain and topical steroid -no bynum augustine on exam generally weak on exam will check labs, cultures, ua/ucg, ekg, cxr will place consult to dr. chamberlain for further eval of shingles will give ivf hydration will monitor case discussed with Dr. Dean - recommends admission given weakness (son has been carrying the patient to and from the bathroom) to Dr. Nguyễn. 08/15/17 14:02 case discussed with [facility] - accept pt to service <Betty Grimes - Last Filed: 08/15/17 14:02> *DC/Admit/Observation/Transfer - Discharge Dispostion Admit: Yes - Attestations Physician Attestion: 08/15/17 14:06 I, Dr. Betty Grimes DO, attest that this document has been prepared under my direction and personally reviewed by me in its entirety. I further attest, that it accurately reflects all work, treatment, procedures and medical decision -making performed by me. <Betty Grimes - Last Filed: 08/15/17 14:02> - Attestations Scribe Attestion: 08/15/17 15:00 Documentation prepared by Noé Slater, acting as medical receptionist medical assistant for Betty Grimes DO, MD/DO. <Noé Slater - Last Filed: 08/15/17 15:00> Diagnosis at time of Disposition: UTI (lower urinary tract infection), Shingles, Weakness - Discharge Dispostion Condition at time of disposition: Fair
[2017-08-15] MEDS ORDERED: SODIUM CHLORIDE 0.9% 1000 ML INFUS.BAG IV ONE (11:01)
[2017-08-15] MEDS ORDERED: METOCLOPRAMIDE HCL INJECTION 10 MG/2 ML VIAL IVPUSH ONE (11:01)
[2017-08-15] MEDS ORDERED: ACETAMINOPHEN 1000 MG/100 ML VIAL (NON FORMULARY) IVPB ONE (11:01)
[2017-08-15 11:42] LABS: BASO % 0.8 % (0-2.0); EOS % 2.8 % (0-4.5); HEMATOCRIT 40.3 % (32.4-45.2); HEMOGLOBIN 13.2 GM/dL (10.7-15.3); LYMPH % 24.8 % (8-40); MCH 28.8 pg (25.7-33.7); MCHC 32.8 g/dl (32.0-36.0); MEAN CELL VOLUME 87.8 fl (80-96); MEAN PLT VOLUME 7.3 fl (7.5-11.1); MONO % 10.6 % (3.8-10.2); PLATELET COUNT 292 K/MM3 (134-434); RBC 4.58 M/mm3 (3.60-5.2); RDW 13.6 % (11.6-15.6); WHITE BLOOD COUNT 6.8 K/mm3 (4.0-10.0)
[2017-08-15 11:45] LABS: URINE APPEARANCE CLOUDY; URINE BILIRUBIN NEGATIVE (NEGATIVE); URINE BLOOD NEGATIVE (NEGATIVE); URINE COLOR LTYELLOW; URINE GLUCOSE (UA) NEGATIVE (NEGATIVE); URINE KETONE NEGATIVE (NEGATIVE); URINE NITRITE NEGATIVE (NEGATIVE); URINE PROTEIN NEGATIVE (NEGATIVE); URINE UROBILINOGEN NEGATIVE mg/dL (0.2-1.0)
[2017-08-15 11:52] LABS: EPI CELLS MANY /HPF (FEW); URINE BACTERIA RARE /hpf (NONE SEEN); URINE HYALINE CAST 3 /lpf; URINE LEUK ESTERASE 2+ (NEGATIVE); URINE MUCUS RARE
[2017-08-15 11:57] LABS: ALBUMIN 3.5 g/dl (3.4-5.0); ANION GAP 7 (8-16); BILIRUBIN,TOTAL 0.4 mg/dL (0.2-1.0); BLOOD UREA NITROGEN 23 mg/dL (7-18); CALCIUM 8.4 mg/dL (8.5-10.1); CHLORIDE 109 mmol/L (98-107); CO2 26 mmol/L (21-32); CREATININE 1.1 mg/dL (0.55-1.02); GLUCOSE,RANDOM 98 mg/dL (74-106); MAGNESIUM 2.2 mg/dL (1.8-2.4); POTASSIUM 4.2 mmol/L (3.5-5.1); SGOT/AST 12 U/L (15-37); SGPT/ALT 17 U/L (12-78); SODIUM 142 mmol/L (136-145); TOT PROT 6.9 g/dl (6.4-8.2)
[2017-08-15 12:00] LABS: ALK PHOS 60 U/L (45-117); INR 1.48 (0.82-1.09); PROTHROMBIN TIME (PATIENT) 16.7 SEC (9.98-11.88)
[2017-08-15 12:03] LABS: ACTIVATED PTT 33.7 SECONDS (26.9-34.4)
[2017-08-15] MEDS ORDERED: ACETAMINOPHEN INJECTION 100 ML IVPB ONE (12:43)
[2017-08-15] MEDS ORDERED: METOCLOPRAMIDE HCL INJECTION 10 MG/2 ML VIAL ONE (12:43)
[2017-08-15] MEDS ORDERED: cefTRIAXone 1 GM/50 ML BAG (PRE-DOCKED) IVPB ONE (14:02)
--- NOTE | 2017-08-15 15:03 | HP ---
Admitting History and Physical - Primary Care Physician PCP: Giacomo Dean - Admission Chief Complaint: "worsening pain" History of Present Illness: is a 87 year old female with a pmh of afib, htn, hld, vitamin d deficiency, and chronic utis presents today with worsening right occipital pain , inability to ambulate, poor po intake and severe weakness/fatigue. Daughter reports pt has not been able to sleep due to severe sharp right occipital/neck pain. Pt also has not been ambulating at home. Pt was seen by PCP 1 week ago, diagnosed and started treatment for shingles. Pt completed 6/7 days of treatment and reports the pain has been worsening. Pt describes pain as sharp, severe and radiating to head. Unable to tell alleviating/worsening factors. Pt reports taking tylenol and gabapentin at home but with very minimal relief. Pt denies any chest pain, sob, n/v/d, changes in vision, unilateral weakness, sick contacts, or fevers/chills. History Source: Patient, Family Member Limitations to Obtaining History: Clinical Condition - Past Medical History Cardiovascular: Yes: AFIB, HTN, Hyperlipdemia Renal/: Yes: Other (overactive bladder) - Past Surgical History Past Surgical History: Yes: AICD (/ PPM), Joint Replacement (bilateral knee replacments) - Smoking History Smoking history: Never smoked Have you smoked in the past 12 months: No Aproximately how many cigarettes per day: 0 - Alcohol/Substance Use Hx Alcohol Use: No History of Substance Use: reports: None - Social History Usual Living Arrangement: Yes: Alone ADL: Independent History of Recent Travel: No Home Medications - Allergies Allergies/Adverse Reactions: Allergies Allergy/AdvReac Type Severity Reaction Status Date / Time tramadol Allergy Verified 08/04/17 13:33 meclizine AdvReac Verified 08/04/17 13:34 - Home Medications Home Medications: Ambulatory Orders Apixaban [Eliquis] 5 mg PO BID 08/04/17 Carvedilol [Coreg -] 3.125 mg PO BID 08/04/17 Cholecalciferol (Vitamin D3) [Vitamin D3] 2,000 unit PO DAILY 08/04/17 Losartan Potassium [Cozaar -] 25 mg PO BID 08/04/17 Levofloxacin [Levaquin] 250 mg PO DAILY #8 tablet 08/05/17 Ondansetron [Zofran -] 4 mg PO Q6H PRN #30 tablet 08/05/17 Family Disease History - Family Disease History Family Disease History: Diabetes: Brother, Heart Disease: Father (copd), CA: Mother (ovarian ca), Respiratory: Father Review of Systems Findings/Remarks: as per hpi Physical Examination Vital Signs: Vital Signs Temperature 97.1 F L 08/15/17 10:25 Pulse Rate 80 08/15/17 10:25 Respiratory Rate 20 08/15/17 10:25 Blood Pressure 163/88 08/15/17 10:25 O2 Sat by Pulse Oximetry (%) 94 L 08/15/17 10:25 Constitutional: Yes: No Distress, Mild Distress (severe pain) Eyes: Yes: WNL, Conjunctiva Clear Cardiovascular: Yes: WNL, Regular Rate and Rhythm. No: Tachycardia, Bruit, Gallop, Murmur Respiratory: Yes: WNL, Regular, CTA Bilaterally. No: Rales, Rhonchi, Tachypnea , Wheezes Gastrointestinal: Yes: WNL, Normal Bowel Sounds, Abdomen, Obese, Tenderness. No : Distention Extremities: Yes: WNL Edema: No Integumentary: Yes: Rash (right neck scattered crusted dry papules) Neurological: Yes: WNL, Alert Psychiatric: Yes: Alert, Oriented Labs: CBC, BMP 08/15/17 11:24 08/15/17 11:24 Imaging - Results Chest X-ray: Report Reviewed Problem List - Problems (1) Post herpetic neuralgia Assessment/Plan: failed outpt therapy, very minimal relief with gabapentin, pt reports severe right occipital pain with no relief, affecting pt's function/sleep completed 6/7 days of valtrex, rash appears crusted, no active lesions will give last dose of valtrex today no need for further tx or contact isolations per ID lyrica 25mg tid started will monitor Code(s): B02.29 - OTHER POSTHERPETIC NERVOUS SYSTEM INVOLVEMENT (2) Intractable pain Assessment/Plan: pt reports severe right occipital pain affecting pt's function, and sleep failed outpt pain management will start lyrica and monitor for improvement Code(s): R52 - PAIN, UNSPECIFIED (3) Shingles Code(s): B02.9 - ZOSTER WITHOUT COMPLICATIONS Qualifiers: Herpes zoster complications: unspecified herpes zoster complication Qualified Code(s): B02.8 - Zoster with other complications (4) UTI (lower urinary tract infection) Assessment/Plan: pt asymptomatic no need to tx per id Code(s): N39.0 - URINARY TRACT INFECTION, SITE NOT SPECIFIED (5) Weakness Assessment/Plan: secondary to disease process as above ivf monitor labs pt consulted Code(s): R53.1 - WEAKNESS (6) Atrial fibrillation Assessment/Plan: rate controlled coagulated on eliquis Code(s): I48.91 - UNSPECIFIED ATRIAL FIBRILLATION Qualifiers: Atrial fibrillation type: chronic Qualified Code(s): I48.2 - Chronic atrial fibrillation (7) HTN (hypertension) Assessment/Plan: controlled continue cozaar and carvedilol will monitor Code(s): I10 - ESSENTIAL (PRIMARY) HYPERTENSION Qualifiers: Hypertension type: essential hypertension Qualified Code(s): I10 - Essential (primary) hypertension
[2017-08-15] MEDS ORDERED: CEFTRIAXONE 1 GM/50 ML BAG ONE (15:08)
[2017-08-15] MEDS ORDERED: valACYclovir HCL 500 MG TABLET (FP) PO ONE (15:11)
[2017-08-15] MEDS ORDERED: SODIUM CHLORIDE 1,000 ML IV SCH (15:15)
--- NOTE | 2017-08-15 15:21 | CON.ID ---
Consult Consult Specialty:: infectious disease Referred by:: dr nguyễn Reason for Consultation:: zoster - History of Present Illness Chief Complaint: pain History of Present Illness: 87 year old female with zoster, day #7 of treatment, it is drying nicely she has no appetite, and is in severe pain unable to sleep due to pain eating and drinking poorly no fevers no mental status changes she was hospitalized overnight 08/04 to 08/05 for pneumonia and discharged on levaquin she was dr woods last week and was given valtrex 1 g po tid for 7 days and neurontin tid she has one last pill to take - History Source History Provided By: Patient, Family Member Limitations to Obtaining History: Clinical Condition - Past Medical History Cardio/Vascular: Yes: AFIB, HTN, Hyperlipdemia Renal/: Yes: UTI, Other (overactive bladder) - Past Surgical History Past Surgical History: Yes: AICD (/ PPM), Joint Replacement (bilateral knee replacments) - Alcohol/Substance Use Hx Alcohol Use: No History of Substance Use: reports: None - Smoking History Smoking history: Never smoked Have you smoked in the past 12 months: No Aproximately how many cigarettes per day: 0 - Social History Usual Living Arrangement: Alone ADL: Independent History of Recent Travel: No Home Medications - Allergies Allergies/Adverse Reactions: Allergies Allergy/AdvReac Type Severity Reaction Status Date / Time tramadol Allergy Verified 08/04/17 13:33 meclizine AdvReac Verified 08/04/17 13:34 - Home Medications Home Medications: Ambulatory Orders Apixaban [Eliquis] 5 mg PO BID 08/04/17 Carvedilol [Coreg -] 3.125 mg PO BID 08/04/17 Cholecalciferol (Vitamin D3) [Vitamin D3] 2,000 unit PO DAILY 08/04/17 Losartan Potassium [Cozaar -] 25 mg PO BID 08/04/17 Levofloxacin [Levaquin] 250 mg PO DAILY #8 tablet 08/05/17 Ondansetron [Zofran -] 4 mg PO Q6H PRN #30 tablet 08/05/17 Family Disease History - Family Disease History Family Disease History: Diabetes: Brother, Heart Disease: Father (copd), CA: Mother (ovarian ca), Respiratory: Father Review of Systems - Review of Systems Constitutional: reports: No Symptoms Eyes: reports: No Symptoms HENT: reports: No Symptoms. denies: Throat Pain Neck: reports: No Symptoms Cardiovascular: reports: No Symptoms. denies: Chest Pain Respiratory: reports: No Symptoms. denies: Cough, SOB on Exertion Gastrointestinal: reports: No Symptoms. denies: Abdominal Pain Genitourinary: denies: Burning, Discharge, Frequency Integumentary: reports: Rash (dry severe pain right side of face and neck) Physical Exam Vital Signs: Vital Signs Temperature 97.1 F L 08/15/17 10:25 Pulse Rate 80 08/15/17 10:25 Respiratory Rate 20 08/15/17 10:25 Blood Pressure 163/88 08/15/17 10:25 O2 Sat by Pulse Oximetry (%) 94 L 08/15/17 10:25 Constitutional: Yes: Well Nourished, No Distress, Calm Eyes: Yes: WNL, Conjunctiva Clear, EOM Intact HENT: Yes: Atraumatic, Normocephalic, Other (no oral lesions, no ear lesions, dry rash on her neck up to her ear on the right- ?C3 no vesicles no erythema or cellulitis). No: Pharyngeal Erythema, Thrush Cardiovascular: Yes: Regular Rate and Rhythm Respiratory: Yes: Regular, CTA Bilaterally Gastrointestinal: Yes: Normal Bowel Sounds, Soft ...Rectal Exam: Yes: Deferred Renal/: Yes: WNL. No: Bladder Distention, CVA Tenderness - Left, CVA Tenderness - Right Edema: No Psychiatric: Yes: Alert, Oriented Labs: CBC, BMP 08/15/17 11:24 08/15/17 11:24 Imaging - Results Chest X-ray: Report Reviewed, Image Reviewed Problem List - Problems (1) Shingles Code(s): B02.9 - ZOSTER WITHOUT COMPLICATIONS (2) Post herpetic neuralgia Code(s): B02.29 - OTHER POSTHERPETIC NERVOUS SYSTEM INVOLVEMENT Assessment/Plan intractable pain- crying all night rash has dried no need for isolaiton would give last dose po valtrex today pain management gentle hydration d/w Dr Nguyễn please call back if needed
[2017-08-15] MEDS ORDERED: ONDANSETRON 4 MG TABLET PO PRN (15:44)
--- NOTE | 2017-08-15 15:47 | EKG ---
Test Reason : Blood Pressure : / mmHG Vent. Rate : 083 BPM Atrial Rate : 083 BPM P-R Int : 120 ms QRS Dur : 122 ms QT Int : 422 ms P-R-T Axes : 066 -53 086 degrees QTc Int : 495 ms Atrial-sensed ventricular-paced rhythm Biventricular pacemaker detected ABNORMAL ECG WHEN COMPARED WITH ECG OF 04-AUG-2017 10:38, NO SIGNIFICANT CHANGE WAS FOUND Confirmed by ALONDRA KWON, EYAL ([id number]) on 08/15/2017 3:47:16 PM Referred By: Confirmed By:EYAL CANTU MD
[2017-08-15 18:48] VITALS: BMI 29.1
[2017-08-15] MEDS: LOSARTAN POTASSIUM 25 MG TABLET PO SCH (22:14)
[2017-08-15] MEDS: PREGABALIN 25 MG CAPSULE PO SCH (22:14)
[2017-08-15] MEDS: APIXABAN 5 MG TABLET PO SCH (22:14)
[2017-08-15] MEDS: CARVEDILOL 3.125 MG TABLET (FP) PO SCH (22:14)
[2017-08-15] MEDS: ACETAMINOPHEN 325 MG TABLET (FP) PO PRN (22:14)
[2017-08-16] MEDS: PREGABALIN 25 MG CAPSULE PO SCH ×3 (06:25→21:30)
[2017-08-16] MEDS: ACETAMINOPHEN 325 MG TABLET (FP) PO PRN ×3 (06:25→23:16)
[2017-08-16 07:06] LABS: HEMATOCRIT 39.7 % (32.4-45.2); HEMOGLOBIN 12.9 GM/dL (10.7-15.3); MCH 28.7 pg (25.7-33.7); MCHC 32.5 g/dl (32.0-36.0); MEAN CELL VOLUME 88.3 fl (80-96); MEAN PLT VOLUME 7.4 fl (7.5-11.1); PLATELET COUNT 279 K/MM3 (134-434); RBC 4.49 M/mm3 (3.60-5.2); RDW 14.2 % (11.6-15.6); WHITE BLOOD COUNT 6.4 K/mm3 (4.0-10.0)
[2017-08-16 07:39] LABS: INR 1.31 (0.82-1.09); PROTHROMBIN TIME (PATIENT) 14.8 SEC (9.98-11.88)
[2017-08-16 08:10] LABS: ANION GAP 8 (8-16); BLOOD UREA NITROGEN 20 mg/dL (7-18); CALCIUM 7.8 mg/dL (8.5-10.1); CHLORIDE 112 mmol/L (98-107); CO2 24 mmol/L (21-32); GLUCOSE,RANDOM 92 mg/dL (74-106); PHOSPHOROUS 4.2 mg/dL (2.5-4.9); POTASSIUM 4.6 mmol/L (3.5-5.1); SODIUM 144 mmol/L (136-145)
--- NOTE | 2017-08-16 08:15 | PN ---
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 Nguyễn to document today. Dr. Alexander consulted due to degree of neuropathic pain. Will agree to SNF temporary.
[2017-08-16] MEDS: APIXABAN 5 MG TABLET PO SCH ×2 (10:18→21:30)
[2017-08-16] MEDS: LOSARTAN POTASSIUM 25 MG TABLET PO SCH ×2 (10:18→21:30)
[2017-08-16] MEDS: CARVEDILOL 3.125 MG TABLET (FP) PO SCH ×2 (10:19→21:30)
[2017-08-16] MEDS: CHOLECALCIFEROL (VITAMIN D3) 1,000 UNIT TABLET (FP) PO SCH (10:19)
--- NOTE | 2017-08-16 11:45 | PN ---
Progress Note (short form) - Note Progress Note: ID Afebrile Completed antiviral therapy Severe pain as noted Selected Entries 08/16/17 06:00 Temperature 97.8 F Pulse Rate 83 Respiratory 20 Rate Blood Pressure 193/92 Assessmnet Recent zoster with neuropathic pain Plan As discussed pain management consult Nothing further from ID standpoint Joesph KWON
--- NOTE | 2017-08-16 12:09 | PN ---
Progress Note, Physician Chief Complaint: Pt sitting in chair in no acute distress. Reports pain is slightly better. Denies any chest pain, sob, n/v/d or fever/chills. - Current Medication List Current Medications: Active Medications Acetaminophen (Tylenol -) 650 mg PO Q6H PRN PRN Reason: PAIN LEVEL 6-10 Last Admin: 08/16/17 06:25 Dose: 650 mg Apixaban (Eliquis -) 5 mg PO BID [facility] Last Admin: 08/16/17 10:18 Dose: 5 mg Carvedilol (Coreg -) 3.125 mg PO BID [facility] Last Admin: 08/16/17 10:19 Dose: 3.125 mg Cholecalciferol (Vitamin D3 -) 2,000 unit PO DAILY [facility] Last Admin: 08/16/17 10:19 Dose: 2,000 unit Sodium Chloride (Normal Saline -) 1,000 mls @ 50 mls/hr IV ASDIR [facility] Stop: 08/16/17 15:10 Last Admin: 08/15/17 15:54 Dose: 50 mls/hr Losartan Potassium (Cozaar -) 25 mg PO BID [facility] Last Admin: 08/16/17 10:18 Dose: 25 mg Ondansetron HCl (Zofran -) 4 mg PO Q6H PRN PRN Reason: NAUSEA Pregabalin (Lyrica -) 25 mg PO TID [facility] Last Admin: 08/16/17 06:25 Dose: 25 mg - Objective Vital Signs: Vital Signs Temperature 97.8 F 08/16/17 06:00 Pulse Rate 83 08/16/17 06:00 Respiratory Rate 20 08/16/17 06:00 Blood Pressure 193/92 08/16/17 06:00 O2 Sat by Pulse Oximetry (%) 95 08/16/17 02:00 Constitutional: Yes: Well Nourished, No Distress, Calm Eyes: Yes: WNL, Conjunctiva Clear Cardiovascular: Yes: Pulse Irregular, S1, S2. No: Gallop, Murmur Respiratory: Yes: WNL, Regular, CTA Bilaterally. No: Rales, Rhonchi, SOB, Tachypnea, Wheezes Gastrointestinal: Yes: WNL, Normal Bowel Sounds, Soft. No: Distention, Tenderness Genitourinary: Yes: WNL Musculoskeletal: Yes: WNL Extremities: Yes: WNL Edema: No Integumentary: Yes: Rash ( crusted papules on anterior right neck) Neurological: Yes: WNL, Alert, Oriented Psychiatric: Yes: WNL, Alert, Oriented Labs: CBC, BMP 08/16/17 06:00 08/16/17 06:00 INR, PTT INR 1.31 (0.82-1.09) H 08/16/17 06:00 Problem List - Problems (1) Post herpetic neuralgia Code(s): B02.29 - OTHER POSTHERPETIC NERVOUS SYSTEM INVOLVEMENT (2) Intractable pain Code(s): R52 - PAIN, UNSPECIFIED (3) Shingles Code(s): B02.9 - ZOSTER WITHOUT COMPLICATIONS Qualifiers: Herpes zoster complications: unspecified herpes zoster complication Qualified Code(s): B02.8 - Zoster with other complications (4) UTI (lower urinary tract infection) Code(s): N39.0 - URINARY TRACT INFECTION, SITE NOT SPECIFIED (5) Weakness Code(s): R53.1 - WEAKNESS (6) Atrial fibrillation Code(s): I48.91 - UNSPECIFIED ATRIAL FIBRILLATION Qualifiers: Atrial fibrillation type: chronic Qualified Code(s): I48.2 - Chronic atrial fibrillation (7) HTN (hypertension) Code(s): I10 - ESSENTIAL (PRIMARY) HYPERTENSION Qualifiers: Hypertension type: essential hypertension Qualified Code(s): I10 - Essential (primary) hypertension Assessment/Plan (1) Post herpetic neuralgia Assessment/Plan: failed outpt therapy,mild relief in pain today continue lyrica 25mg tid Pain management consulted will monitor Code(s): B02.29 - OTHER POSTHERPETIC NERVOUS SYSTEM INVOLVEMENT (2) Intractable pain Assessment/Plan: pt reports severe right occipital pain affecting pt's function, and sleep, slightly better today failed outpt pain management pain management consulted Code(s): R52 - PAIN, UNSPECIFIED (3) Shingles Assessment/Plan: completed valtrex treatment lesions crusted over without any active lesions Code(s): B02.9 - ZOSTER WITHOUT COMPLICATIONS Qualifiers: Herpes zoster complications: unspecified herpes zoster complication Qualified Code(s): B02.8 - Zoster with other complications (4) UTI (lower urinary tract infection) Assessment/Plan: pt asymptomatic no need to tx per id Code(s): N39.0 - URINARY TRACT INFECTION, SITE NOT SPECIFIED (5) Weakness Assessment/Plan: secondary to disease process as above ivf monitor labs PT pending Code(s): R53.1 - WEAKNESS (6) Atrial fibrillation Assessment/Plan: rate controlled coagulated on eliquis Code(s): I48.91 - UNSPECIFIED ATRIAL FIBRILLATION Qualifiers: Atrial fibrillation type: chronic Qualified Code(s): I48.2 - Chronic atrial fibrillation (7) HTN (hypertension) Assessment/Plan: controlled continue cozaar and carvedilol will monitor Code(s): I10 - ESSENTIAL (PRIMARY) HYPERTENSION Qualifiers: Hypertension type: essential hypertension Qualified Code(s): I10 - Essential (primary) hypertension
[2017-08-17] MEDS: PREGABALIN 25 MG CAPSULE PO SCH ×3 (05:31→22:18)
[2017-08-17 08:14] LABS: BASO % 0.8 % (0-2.0); EOS % 5.2 % (0-4.5); HEMATOCRIT 37.3 % (32.4-45.2); HEMOGLOBIN 12.2 GM/dL (10.7-15.3); LYMPH % 27.3 % (8-40); MCH 28.7 pg (25.7-33.7); MCHC 32.6 g/dl (32.0-36.0); MEAN CELL VOLUME 87.8 fl (80-96); MEAN PLT VOLUME 7.5 fl (7.5-11.1); MONO % 10.5 % (3.8-10.2); NEUT % 56.2 % (42.8-82.8); PLATELET COUNT 265 K/MM3 (134-434); RBC 4.24 M/mm3 (3.60-5.2); RDW 14.1 % (11.6-15.6); WHITE BLOOD COUNT 6.1 K/mm3 (4.0-10.0)
[2017-08-17 08:34] LABS: CHLORIDE 110 mmol/L (98-107); POTASSIUM 4.3 mmol/L (3.5-5.1); SODIUM 142 mmol/L (136-145)
[2017-08-17 08:38] LABS: ANION GAP 6 (8-16); BLOOD UREA NITROGEN 17 mg/dL (7-18); CALCIUM 8.4 mg/dL (8.5-10.1); CO2 26 mmol/L (21-32); CREATININE 0.9 mg/dL (0.55-1.02); GLUCOSE,RANDOM 88 mg/dL (74-106); PHOSPHOROUS 3.8 mg/dL (2.5-4.9)
--- NOTE | 2017-08-17 09:26 | PN ---
Progress Note (short form) - Note Progress Note: Dr. Nguyễn to document today. Still with neuropathic pain. BP higher;await Dr. Alexander.
[2017-08-17] MEDS: LOSARTAN POTASSIUM 25 MG TABLET PO SCH ×2 (09:57→22:18)
[2017-08-17] MEDS: CHOLECALCIFEROL (VITAMIN D3) 1,000 UNIT TABLET (FP) PO SCH (09:57)
[2017-08-17] MEDS: APIXABAN 5 MG TABLET PO SCH ×2 (09:58→22:18)
[2017-08-17] MEDS: CARVEDILOL 3.125 MG TABLET (FP) PO SCH ×2 (09:58→22:18)
[2017-08-17] MEDS: ACETAMINOPHEN 325 MG TABLET (FP) PO PRN (12:31)
--- NOTE | 2017-08-17 15:45 | PN ---
Progress Note, Physician Chief Complaint: Pt sitting in chair in no acute distress. Reports still severe intermittent pain. Denies any chest pain, sob, n/v/d or fever/chills. - Current Medication List Current Medications: Active Medications Acetaminophen (Tylenol -) 650 mg PO Q6H PRN PRN Reason: PAIN LEVEL 6-10 Last Admin: 08/17/17 12:31 Dose: 650 mg Apixaban (Eliquis -) 5 mg PO BID [facility] Last Admin: 08/17/17 09:58 Dose: 5 mg Carvedilol (Coreg -) 3.125 mg PO BID [facility] Last Admin: 08/17/17 09:58 Dose: 3.125 mg Cholecalciferol (Vitamin D3 -) 2,000 unit PO DAILY [facility] Last Admin: 08/17/17 09:57 Dose: 2,000 unit Losartan Potassium (Cozaar -) 25 mg PO BID [facility] Last Admin: 08/17/17 09:57 Dose: 25 mg Ondansetron HCl (Zofran -) 4 mg PO Q6H PRN PRN Reason: NAUSEA Pregabalin (Lyrica -) 25 mg PO TID [facility] Last Admin: 08/17/17 13:41 Dose: 25 mg - Objective Vital Signs: Vital Signs Temperature 98.1 F 08/17/17 15:14 Pulse Rate 83 08/17/17 15:14 Respiratory Rate 18 08/17/17 15:14 Blood Pressure 160/82 08/17/17 15:14 O2 Sat by Pulse Oximetry (%) 95 08/16/17 02:00 Constitutional: Yes: Well Nourished, No Distress Cardiovascular: Yes: Pulse Irregular, Murmur. No: Bruit, Gallop Respiratory: Yes: WNL, Regular, CTA Bilaterally Gastrointestinal: Yes: WNL, Normal Bowel Sounds. No: Distention, Tenderness Genitourinary: Yes: WNL Musculoskeletal: Yes: WNL Extremities: Yes: WNL Edema: No Integumentary: Yes: WNL Neurological: Yes: WNL, Alert, Oriented Psychiatric: Yes: WNL, Alert, Oriented Labs: CBC, BMP 08/17/17 06:30 08/17/17 06:30 INR, PTT INR 1.31 (0.82-1.09) H 08/16/17 06:00 Problem List - Problems (1) Post herpetic neuralgia Code(s): B02.29 - OTHER POSTHERPETIC NERVOUS SYSTEM INVOLVEMENT (2) Intractable pain Code(s): R52 - PAIN, UNSPECIFIED (3) Shingles Code(s): B02.9 - ZOSTER WITHOUT COMPLICATIONS Qualifiers: Herpes zoster complications: unspecified herpes zoster complication Qualified Code(s): B02.8 - Zoster with other complications (4) UTI (lower urinary tract infection) Code(s): N39.0 - URINARY TRACT INFECTION, SITE NOT SPECIFIED (5) Weakness Code(s): R53.1 - WEAKNESS (6) Atrial fibrillation Code(s): I48.91 - UNSPECIFIED ATRIAL FIBRILLATION Qualifiers: Atrial fibrillation type: chronic Qualified Code(s): I48.2 - Chronic atrial fibrillation (7) HTN (hypertension) Code(s): I10 - ESSENTIAL (PRIMARY) HYPERTENSION Qualifiers: Hypertension type: essential hypertension Qualified Code(s): I10 - Essential (primary) hypertension Assessment/Plan (1) Post herpetic neuralgia Assessment/Plan: failed outpt therapy,still with severe intermittent right occipital/ear pain continue lyrica 25mg tid tylenol prn for pain awaiting pain management consultation will monitor Code(s): B02.29 - OTHER POSTHERPETIC NERVOUS SYSTEM INVOLVEMENT (2) Intractable pain Assessment/Plan: pt reports severe intermittent right occipital pain affecting pt's function, and sleep failed outpt pain management pain management consultation pending Code(s): R52 - PAIN, UNSPECIFIED (3) Shingles Assessment/Plan: completed valtrex treatment lesions crusted over without any active lesions Code(s): B02.9 - ZOSTER WITHOUT COMPLICATIONS Qualifiers: Herpes zoster complications: unspecified herpes zoster complication Qualified Code(s): B02.8 - Zoster with other complications (4) UTI (lower urinary tract infection) Assessment/Plan: pt asymptomatic no need to tx per id Code(s): N39.0 - URINARY TRACT INFECTION, SITE NOT SPECIFIED (5) Weakness Assessment/Plan: secondary to disease process as above ivf monitor labs PT as tolerated Code(s): R53.1 - WEAKNESS (6) Atrial fibrillation Assessment/Plan: rate controlled coagulated on eliquis Code(s): I48.91 - UNSPECIFIED ATRIAL FIBRILLATION Qualifiers: Atrial fibrillation type: chronic Qualified Code(s): I48.2 - Chronic atrial fibrillation (7) HTN (hypertension) Assessment/Plan: controlled continue cozaar and carvedilol will monitor Code(s): I10 - ESSENTIAL (PRIMARY) HYPERTENSION Qualifiers: Hypertension type: essential hypertension Qualified Code(s): I10 - Essential (primary) hypertension
--- NOTE | 2017-08-17 18:58 | CONSULT ---
Consult Consult Specialty:: pain medicine Referred by:: dr woods Reason for Consultation:: facial pain - History of Present Illness Chief Complaint: facial pain History of Present Illness: 87 year old female with zoster Patient c/o severe right ear pain. Pain is not controlled with tylenol - Past Medical History Cardio/Vascular: Yes: AFIB, HTN, Hyperlipdemia Renal/: Yes: Other (overactive bladder) ...: No - Past Surgical History Past Surgical History: Yes: AICD (/ PPM), Joint Replacement (bilateral knee replacments) - Alcohol/Substance Use Hx Alcohol Use: No History of Substance Use: reports: None - Smoking History Smoking history: Never smoked Have you smoked in the past 12 months: No Aproximately how many cigarettes per day: 0 - Social History Usual Living Arrangement: Alone ADL: Independent History of Recent Travel: No Home Medications - Allergies Allergies/Adverse Reactions: Allergies Allergy/AdvReac Type Severity Reaction Status Date / Time tramadol Allergy Verified 08/04/17 13:33 meclizine AdvReac Verified 08/04/17 13:34 - Home Medications Home Medications: Ambulatory Orders Apixaban [Eliquis] 5 mg PO BID 08/04/17 Carvedilol [Coreg -] 3.125 mg PO BID 08/04/17 Cholecalciferol (Vitamin D3) [Vitamin D3] 2,000 unit PO DAILY 08/04/17 Losartan Potassium [Cozaar -] 25 mg PO BID 08/04/17 Ondansetron [Zofran -] 4 mg PO Q6H PRN #30 tablet 08/05/17 Family Disease History - Family Disease History Family Disease History: Diabetes: Brother, Heart Disease: Father (copd), CA: Mother (ovarian ca), Respiratory: Father Physical Exam Vital Signs: Vital Signs Temperature 98.5 F 08/17/17 17:17 Pulse Rate 78 08/17/17 17:17 Respiratory Rate 20 08/17/17 17:17 Blood Pressure 148/84 08/17/17 17:17 O2 Sat by Pulse Oximetry (%) 95 08/16/17 02:00 Eyes: Yes: Other (right ear allodynia; healing rash) Labs: CBC, BMP 08/17/17 06:30 08/17/17 06:30 Assessment/Plan Post herpetic neuralgai 1. Lidocaine ointment 5% q12h 2. Tylenol prn pain 3. Lyrica 25mg PO q8h and titrate slowly
[2017-08-17] MEDS: LIDOCAINE HCL 5% TOP OINTMENT 50 GM TUBE MM SCH ×2 (20:47→22:18)
[2017-08-18] MEDS: PREGABALIN 25 MG CAPSULE PO SCH ×2 (06:03→14:18)
[2017-08-18 07:51] LABS: BASO % 0.7 % (0-2.0); EOS % 3.5 % (0-4.5); HEMOGLOBIN 12.1 GM/dL (10.7-15.3); LYMPH % 24.8 % (8-40); MCH 28.8 pg (25.7-33.7); MCHC 32.6 g/dl (32.0-36.0); MEAN CELL VOLUME 88.2 fl (80-96); MEAN PLT VOLUME 7.3 fl (7.5-11.1); MONO % 9.6 % (3.8-10.2); NEUT % 61.4 % (42.8-82.8); PLATELET COUNT 262 K/MM3 (134-434); RDW 14.1 % (11.6-15.6); WHITE BLOOD COUNT 6.7 K/mm3 (4.0-10.0)
[2017-08-18 08:44] LABS: CHLORIDE 108 mmol/L (98-107); POTASSIUM 4.4 mmol/L (3.5-5.1); SODIUM 141 mmol/L (136-145)
[2017-08-18 08:54] LABS: ANION GAP 7 (8-16); BLOOD UREA NITROGEN 18 mg/dL (7-18); CO2 26 mmol/L (21-32); CREATININE 0.9 mg/dL (0.55-1.02); GLUCOSE,RANDOM 95 mg/dL (74-106)
[2017-08-18 09:40] VITALS: PULSE 84
[2017-08-18] MEDS: CHOLECALCIFEROL (VITAMIN D3) 1,000 UNIT TABLET (FP) PO SCH (09:43)
[2017-08-18] MEDS: LOSARTAN POTASSIUM 25 MG TABLET PO SCH (09:43)
[2017-08-18] MEDS: CARVEDILOL 3.125 MG TABLET (FP) PO SCH (09:43)
[2017-08-18] MEDS: APIXABAN 5 MG TABLET PO SCH (09:43)
[2017-08-18] MEDS: LIDOCAINE HCL 5% TOP OINTMENT 50 GM TUBE MM SCH (09:44)
[2017-08-18] MEDS: ACETAMINOPHEN 325 MG TABLET (FP) PO PRN (12:33)
--- NOTE | 2017-08-18 12:33 | DS ---
Physical Examination Vital Signs: Vital Signs Temperature 98.4 F 08/18/17 09:39 Pulse Rate 84 08/18/17 09:39 Respiratory Rate 20 08/18/17 09:39 Blood Pressure 169/92 08/18/17 09:39 O2 Sat by Pulse Oximetry (%) 95 08/18/17 10:00 Elderly F, not in acute distress HEENT: Mm moist, mild anemia, PEEERLA NECK; Healing rash, no JVD No Bruit CHEST: CTA B/L CVS: S1S2 R no m/g/r ABD: obese, non tender Bs + EXT: Trace rosanna,ma feet, no calf tenderness, Pulses +2 Labs: CBC, BMP 08/18/17 07:12 08/18/17 07:12 Discharge Summary Reason For Visit: LOWER UTI DISEASE; HERPES ZOSTER Current Active Problems Intractable pain (Acute) Post herpetic neuralgia (Acute) Shingles (Acute) UTI (lower urinary tract infection) (Acute) Weakness (Acute) Hospital Course: 87 yrs old F with H/O HTN, Afib, admitted with post Herpez Zoster Neuralgia and intractable pain admitted for optimization of pain medication is being Dc to [facility] on Lyrica and topical lidocaine. Condition: Fair - Instructions Referrals: Giacomo Dean MD [Primary Care Provider] - 1 Week Disposition: [facility] - Home Medications Comprehensive Discharge Medication List: Ambulatory Orders Apixaban [Eliquis] 5 mg PO BID 08/04/17 Carvedilol [Coreg -] 3.125 mg PO BID 08/04/17 Cholecalciferol (Vitamin D3) [Vitamin D3] 2,000 unit PO DAILY 08/04/17 Losartan Potassium [Cozaar -] 25 mg PO BID 08/04/17 Ondansetron [Zofran -] 4 mg PO Q6H PRN #30 tablet 08/05/17 Acetaminophen [Tylenol .Regular Strength -] 650 mg PO Q6H PRN tablet 08/18/17 Lidocaine 5% Top. Ointment [Xylocaine 5% Top. Ointment -] 1 applic MM BID 7 Days #1 tube 08/18/17 Pregabalin [Lyrica -] 25 mg PO TID 7 Days #20 capsule MDD 3 08/18/17
[2017-08-18 14:41] VITALS: BP 151/76; TEMP 98
== END 2017-08-18 14:55 | DRG 74 ==
LOC: JER 10:14 → JERBED 14:06 → J8W 18:00
PROVIDERS: ADMIT Internal Medicine; ATTEND Internal Medicine
DX: B02.29 Other postherpetic nervous system involvement (principal); N39.0 Urinary tract infection, site not specified; R52 Pain, unspecified; R53.1 Weakness; I48.2 Chronic atrial fibrillation; I10 Essential (primary) hypertension; E78.5 Hyperlipidemia, unspecified; B02.8 Zoster with other complications; Z95.0 Presence of cardiac pacemaker
CPT/HCPCS: 36415; 70450-TC; 71045-TC; 80048; 80053; 81003; 81015; 82550; 83605; 83735; 83880; 84100; 84484; 85025; 85027; 85610; 85730; 87086; 93005; 93010; 97116-GP; 97161-GP; 99285-25

== ENCOUNTER 2019-04-06 10:16 | Emergency (ER) | payer OTHER, MEDICARE ==
[2019-04-06 10:24] VITALS: BP 146/76; PULSE 99; TEMP 98.8; BMI 32.8
[2019-04-06 12:07] LABS: BASO % 0.5 % (0-2.0); EOS % 3.5 % (0-4.5); HEMATOCRIT 40.1 % (32.4-45.2); HEMOGLOBIN 13.1 GM/dL (10.7-15.3); LYMPH % 15.5 % (8-40); MCH 29.1 pg (25.7-33.7); MCHC 32.8 g/dl (32.0-36.0); MEAN CELL VOLUME 88.7 fl (80-96); MEAN PLT VOLUME 7.8 fl (7.5-11.1); MONO % 9.7 % (3.8-10.2); NEUT % 70.8 % (42.8-82.8); PLATELET COUNT 250 K/MM3 (134-434); RBC 4.52 M/mm3 (3.60-5.2); RDW 13.7 % (11.6-15.6); WHITE BLOOD COUNT 7.7 K/mm3 (4.0-10.0)
[2019-04-06 12:17] LABS: INR 1.18 (0.83-1.09)
[2019-04-06 12:20] LABS: ACTIVATED PTT 42.2 SECONDS (25.2-36.5)
[2019-04-06 12:37] LABS: N-TERMINAL BNP 579.4 pg/ml (5-450)
--- NOTE | 2019-04-06 12:47 | PDOC ---
History of Present Illness - General Chief Complaint: Respiratory Stated Complaint: COUGH Time Seen by Provider: 04/06/19 11:29 History Source: Patient Exam Limitations: Clinical Condition - History of Present Illness Initial Comments: 04/06/19 12:04 Patient with past medical history of CHF, hypertension and CAD with defibrillator on carvidilol, Eliquis, lasix, present with complains of 2 weeks h /o persistent dry cough worsening in the last 48hrs.Patient reported she was seen by her PCP 2 weeks ago for cough and was told his symptoms likely caused by blood pressure medications which she has been taking for many years which this was disputed by her infection prevention specialist. Patient report has been taking her lasix sporadically due to h/o overactive bladder and was told by urologist to only take lasix as needed. Denies fever, chills, CP, SOB, N/V, dizziness, numbness or tingling sensation. Denies abd pains. Denies sick contacted of recent travel Is this a multiple visit Asthma Patient?: No Timing/Duration: reports: getting worse Severity: reports: moderate Past History - Past Medical History Allergies/Adverse Reactions: Allergies Allergy/AdvReac Type Severity Reaction Status Date / Time tramadol Allergy Verified 04/06/19 10:24 meclizine AdvReac Verified 04/06/19 10:24 Home Medications: Ambulatory Orders Apixaban [Eliquis] 5 mg PO BID 08/04/17 Carvedilol [Coreg -] 3.125 mg PO BID 08/04/17 Cholecalciferol (Vitamin D3) [Vitamin D3] 2,000 unit PO DAILY 08/04/17 Losartan Potassium [Cozaar -] 25 mg PO BID 08/04/17 Ondansetron [Zofran -] 4 mg PO Q6H PRN #30 tablet 08/05/17 Acetaminophen [Tylenol .Regular Strength -] 650 mg PO Q6H PRN tablet 08/18/17 Lidocaine 5% Top. Ointment [Xylocaine 5% Top. Ointment -] 1 applic MM BID 7 Days #1 tube 08/18/17 Pregabalin [Lyrica -] 25 mg PO TID 7 Days #20 capsule MDD 3 08/18/17 Benzonatate [Tessalon Pearls -] 100 mg PO Q8H PRN #21 capsule 04/06/19 Anemia: No Asthma: No Cancer: No Cardiac Disorders: Yes (A-FIB, AICD) CVA: No COPD: No CHF: No Dementia: No Diabetes: No GI Disorders: No Disorders: Yes (OVERACTIVE BLADDER) HTN: Yes (DX ) Hypercholesterolemia: Yes (DIET CONTROLLED) Liver Disease: No Seizures: No Thyroid Disease: No - Surgical History Abdominal Surgery: No Appendectomy: No Cardiac Surgery: Yes (PACEMAKER/DEFIB) Cholecystectomy: No Lung Surgery: No Neurologic Surgery: No Orthopedic Surgery: No (RICHIE TOTAL KNEE REPLACEMENTS-2000 & 2002, back surgery) - Immunization History Immunization Up to Date: Yes - Psycho Social/Smoking Cessation Hx Smoking Status: No Smoking History: Never smoked Have you smoked in the past 12 months: No Number of Cigarettes Smoked Daily: 0 Hx Alcohol Use: No Drug/Substance Use Hx: No Substance Use Type: None Hx Substance Use Treatment: No Review of Systems - Review of Systems Able to Perform ROS?: Yes Is the patient limited Luxem[place]ish proficient: No Constitutional: No: Chills, Fever, Malaise, Weakness HEENTM: Yes: Symptoms Reported, See HPI, Nose Congestion. No: Eye Pain, Blurred Vision, Tearing, Recent change in vision, Double Vision, Cataracts, Ear Pain, Ocular Prothesis, Ear Discharge, Nose Pain, Tinnitus, Nose Bleeding, Hearing Loss, Throat Pain, Throat Swelling, Mouth Pain, Dental Problems, Difficulty Swallowing, Mouth Swelling, Other Respiratory: Yes: Symptoms reported, See HPI, Cough. No: Orthopnea, Shortness of Breath, SOB with Exertion, SOB at Rest, Stridor, Wheezing, Productive cough, Hemoptysis, Other Cardiac (ROS): No: Symptoms Reported, See HPI, Chest Pain, Edema, Irregular Heart Rate, Lightheadedness, Palpitations, Syncope, Chest Tightness, Other ABD/GI: No: Symptoms Reported, Abd. Pain w/ defecation, Blood Streaked Bowels, Nausea, Vomiting, Abdominal cramping Integumentary: No: Symptoms Reported Neurological: No: Symptoms reported, Headache, Weakness, Unsteady Gait, Dizziness Endocrine: No: Symptoms Reported All Other Systems: Reviewed and Negative *Physical Exam - Vital Signs Last Vital Signs Temp Pulse Resp BP Pulse Ox 98.8 F 99 H 18 146/76 94 L 04/06/19 10:19 04/06/19 10:19 04/06/19 10:19 04/06/19 10:19 04/06/19 10:19 - Physical Exam Comments: 04/06/19 12:47 GENERAL: Well developed, well nourished. Awake and alert. No acute distress. HEENT: Normocephalic, atraumatic. PERRLA, EOMI. No conjunctival pallor. Sclera are non-icteric. Moist mucous membranes. Oropharynx is clear. NECK: Supple. Full ROM. CARDIOVASCULAR: Regular rate and rhythm. No murmurs, rubs, or gallops. Distal pulses are 2+ and symmetric. PULMONARY: No evidence of respiratory distress. Lungs clear to auscultation bilaterally. No wheezing, rales or rhonchi. ABDOMINAL: Soft. Non-tender. Non-distended. No rebound or guarding. No organomegaly. Normoactive bowel sounds. MUSCULOSKELETAL Normal range of motion at all joints. SKIN: Warm and dry. Normal capillary refill. No rashes. No cyanosis. NEUROLOGICAL: Alert, awake, appropriate. Gait is normal without ataxia. PSYCHIATRIC: Cooperative. Good eye contact. Appropriate mood General Appearance: Yes: Nourished, Appropriately Dressed. No: Apparent Distress ED Treatment Course - LABORATORY CBC & Chemistry Diagram: 04/06/19 11:54 - ADDITIONAL ORDERS Additional order review: Laboratory Results 04/06/19 04/06/19 11:55 11:54 PT with INR 14.00 H Cancelled INR 1.18 H Cancelled PTT (Actin FS) 42.2 H 04/06/19 11:54 RBC 4.52 MCV 88.7 MCHC 32.8 RDW 13.7 MPV 7.8 Neutrophils % 70.8 Lymphocytes % 15.5 D Monocytes % 9.7 Eosinophils % 3.5 Basophils % 0.5 - RADIOLOGY Radiology Studies Ordered: Category Date Time Status CHEST PA & LAT [RAD] Stat Radiology 04/06/19 11:41 Ordered Medical Decision Making - Medical Decision Making 04/06/19 12:17 Patient with past medical history of CHF, hypertension and CAD with defibrillator on carvidilol, Eliquis, lasix, present with complains of 2 weeks h /o persistent dry cough worsening in the last 48hrs.Patient reported she was seen by her PCP 2 weeks ago for cough and was told his symptoms likely caused by blood pressure medications which she has been taking for many years which this was disputed by her infection prevention specialist. Patient report has been taking her lasix sporadically due to h/o overactive bladder and was told by urologist to only take lasix as needed. Denies fever, chills, CP, SOB, N/V, dizziness, numbness or tingling sensation. Denies abd pains. Denies sick contacted of recent travel Patient coughing throughout ED visit. Lungs clear to auscultation bilateral. Patient afebrile.. CBC, CMP, BMP and cardiac profile lab ordered. EKG shows no acute pathology with pacemaker. Checks x-ray shows no acute infiltrate or pathology. Symptoms likely URI with cough versus less likely CHF exacerbation. Lasix 40 mg by mouth given. Treat based on lab results 04/06/19 13:20 CBC and cardiac profile labs. BNP is 545 which is decreased from previous history of elevated BNPs .patient is stable for outpatient management Tessalon Perles when necessary for cough with advised to follow-up with cardiology tomorrow for reevaluation of medications for possible cause of cough. Plan discussed with patient and patient agrees to plan. Patient of call infection prevention specialist and PCP tomorrow for follow-up Discharge - Discharge Information Problems reviewed: Yes Clinical Impression/Diagnosis: Cough in adult patient CHF (congestive heart failure) Qualifiers: Heart failure type: unspecified Heart failure chronicity: chronic Qualified Code(s): I50.9 - Heart failure, unspecified Condition: Stable Disposition: HOME - Admission No - Additional Discharge Information Prescriptions: Benzonatate [Tessalon Pearls -] 100 mg PO Q8H PRN #21 capsule PRN Reason: Cough - Follow up/Referral Referrals: Giacomo Dean MD [Primary Care Provider] - - Patient Discharge Instructions Patient Printed Discharge Instructions: Cough, DI for Cough -- Adult Additional Instructions: Your chest x-ray shows no fluid in the lungs or pneumonia. cardiac labs is normal.Take medication as needed for cough. Please call your PCP and cardiology tomorrow for follow-up of persistent cough and re-evaluate entresto medication - Post Discharge Activity
[2019-04-06] MEDS ORDERED: FUROSEMIDE 40 MG TABLET (FP) PO ONE (12:49)
[2019-04-06] MEDS ORDERED: FUROSEMIDE 40 MG TABLET (FP) ONE (12:57)
--- NOTE | 2019-04-06 16:44 | EKG ---
Test Reason : Blood Pressure : / mmHG Vent. Rate : 080 BPM Atrial Rate : 080 BPM P-R Int : 120 ms QRS Dur : 120 ms QT Int : 398 ms P-R-T Axes : 074 -68 085 degrees QTc Int : 459 ms Atrial-sensed ventricular-paced rhythm Biventricular pacemaker detected ABNORMAL ECG WHEN COMPARED WITH ECG OF 15-AUG-2017 11:32, VENT. RATE HAS DECREASED BY 3 BPM Confirmed by EPIFANIO KWON, SALIMA ([id number]) on 04/06/2019 4:44:03 PM Referred By: Confirmed By:SALIMA GODFREY MD
== END 2019-04-06 13:06 | disposition home or self-care (01) ==
LOC: JER 10:16
DX: I11.0 Hypertensive heart disease with heart failure (principal); I25.10 Atherosclerotic heart disease of native coronary artery without angina pectoris; E78.00 Pure hypercholesterolemia, unspecified; I50.9 Heart failure, unspecified; I48.91 Unspecified atrial fibrillation; R05 Cough; Z79.01 Long term (current) use of anticoagulants; Z95.810 Presence of automatic (implantable) cardiac defibrillator; N32.81 Overactive bladder; Z88.8 Allergy status to other drugs, medicaments and biological substances
CPT/HCPCS: 36415; 71046-TC-FY; 82550; 83880; 84484; 85025; 85610; 85730; 93005; 93010; 99282-25

== ENCOUNTER → 2019-04-30 | Day surgery (SDC) | payer OTHER, MEDICARE ==
--- NOTE | 2019-05-01 15:49 | PATH ---
Cytology Non-Gynecological Report Patient Name: HANK DOTSON [facility]. Rec. #: [id number] /Age/Gender: 1930 (Age: 89) / F Account: [id number] Location: RADIOLOGY INTER Taken: 04/30/2019 Received: 04/30/2019 Reported: 05/01/2019 Physicians: Diane Joseph M.D. Specimen(s) Received THYROID FNA Clinical History Left thyroid nodule Final Diagnosis THYROID, LEFT, FINE NEEDLE ASPIRATION: SATISFACTORY FOR EVALUATION BETHESDA CLASS II: BENIGN SMALL FOLLICULAR CELLS AND COLLOID PRESENT, CONSISTENT WITH A BENIGN FOLLICULAR NODULE. Electronically Signed Olga Teresa M.D. Gross Description Received are eight direct smears, four of which are air-dried and Diff-Quik stained, and four of which are alcohol fixed and Pap stained. Also received is 20 ml of bloody formalin from which one cellblock is prepared.
== END | disposition home or self-care (01) ==
LOC: JRADIR 08:43
PROVIDERS: ATTEND Internal Medicine
PROC: 0G9G3ZX Drainage of Left Thyroid Gland Lobe, Percutaneous Approach, Diagnostic (ICD-10-PCS; principal; 2019-04-30)
DX: E04.1 Nontoxic single thyroid nodule (principal)
CPT/HCPCS: 76942

== ENCOUNTER 2020-05-24 14:38 | Inpatient (IN) | payer OTHER, MEDICARE ==
[2020-05-24 16:21] LABS: URINE APPEARANCE CLOUDY; URINE BILIRUBIN NEGATIVE (NEGATIVE); URINE COLOR YELLOW; URINE GLUCOSE (UA) NEGATIVE (NEGATIVE); URINE KETONE NEGATIVE (NEGATIVE); URINE LEUK ESTERASE NEGATIVE (NEGATIVE); URINE NITRITE NEGATIVE (NEGATIVE); URINE PROTEIN NEGATIVE (NEGATIVE); URINE UROBILINOGEN 0.2 mg/dL (0.2-1.0)
[2020-05-24 16:26] LABS: BASO % 0.5 % (0-2.0); EOS % 3.1 % (0-4.5); HEMATOCRIT 39.2 % (32.4-45.2); HEMOGLOBIN 13.1 GM/dL (10.7-15.3); LYMPH % 13.6 % (8-40); MCH 29.2 pg (25.7-33.7); MCHC 33.5 g/dl (32.0-36.0); MEAN CELL VOLUME 87.4 fl (80-96); MEAN PLT VOLUME 7.7 fl (7.5-11.1); MONO % 7.1 % (3.8-10.2); NEUT % 75.7 % (42.8-82.8); PLATELET COUNT 277 K/MM3 (134-434); RBC 4.48 M/mm3 (3.60-5.2); RDW 13.9 % (11.6-15.6); WHITE BLOOD COUNT 10.6 K/mm3 (4.0-10.0)
[2020-05-24 16:34] LABS: INR 1.38 (0.83-1.09); PROTHROMBIN TIME (PATIENT) 16.6 SEC (9.7-13.0)
[2020-05-24 16:52] LABS: CHLORIDE 108 mmol/L (98-107); POTASSIUM 4.2 mmol/L (3.5-5.1); SODIUM 142 mmol/L (136-145)
[2020-05-24 16:53] LABS: CALCIUM 9.1 mg/dL (8.5-10.1); GLUCOSE,RANDOM 94 mg/dL (74-106)
[2020-05-24 16:54] LABS: ALBUMIN 3.7 g/dl (3.4-5.0); ANION GAP 5 MMOL/L (8-16); BLOOD UREA NITROGEN 20.9 mg/dL (7-18); CO2 29 mmol/L (21-32)
[2020-05-24 16:58] LABS: CREATININE 1.4 mg/dL (0.55-1.3); SGOT/AST 15 U/L (15-37); SGPT/ALT 16 U/L (13-61)
[2020-05-24 16:59] LABS: BILIRUBIN,TOTAL 0.5 mg/dL (0.2-1); TOT PROT 7.2 g/dl (6.4-8.2)
[2020-05-24 17:00] LABS: ALK PHOS 77 U/L (45-117)
[2020-05-24] MEDS ORDERED: ACETAMINOPHEN 325 MG TABLET (FP) PO ONE (18:57)
[2020-05-24] MEDS ORDERED: ACETAMINOPHEN 325 MG TABLET (FP) ONE (19:06)
[2020-05-24] MEDS ORDERED: CARVEDILOL 3.125 MG TABLET (FP) ONE (22:17)
[2020-05-24] MEDS ORDERED: APIXABAN 5 MG TABLET ONE (22:17)
[2020-05-24] MEDS: APIXABAN 5 MG TABLET PO SCH (22:34)
[2020-05-24] MEDS: CARVEDILOL 3.125 MG TABLET (FP) PO SCH (22:34)
[2020-05-24] MEDS ORDERED: LIDOCAINE 5% TOPICAL PATCH TP ONE (23:17)
[2020-05-24] MEDS ORDERED: LIDOCAINE 5% TOPICAL PATCH ONE (23:40)
[2020-05-25 06:25] LABS: HEMATOCRIT 37.7 % (32.4-45.2); HEMOGLOBIN 12.4 GM/dL (10.7-15.3); MCH 28.8 pg (25.7-33.7); MCHC 32.9 g/dl (32.0-36.0); MEAN CELL VOLUME 87.5 fl (80-96); MEAN PLT VOLUME 8.1 fl (7.5-11.1); PLATELET COUNT 240 K/MM3 (134-434); RBC 4.31 M/mm3 (3.60-5.2); RDW 13.5 % (11.6-15.6); WHITE BLOOD COUNT 7.8 K/mm3 (4.0-10.0)
[2020-05-25 06:46] LABS: POTASSIUM 4.4 mmol/L (3.5-5.1)
[2020-05-25 06:50] LABS: ALBUMIN 3.3 g/dl (3.4-5.0); CALCIUM 8.5 mg/dL (8.5-10.1); MAGNESIUM 1.9 mg/dL (1.8-2.4)
[2020-05-25 06:51] LABS: BLOOD UREA NITROGEN 21.3 mg/dL (7-18)
[2020-05-25 06:53] LABS: CREATININE 1.3 mg/dL (0.55-1.3)
[2020-05-25 06:54] LABS: PHOSPHOROUS 4.1 mg/dL (2.5-4.9)
[2020-05-25 06:55] LABS: BILIRUBIN,TOTAL 0.6 mg/dL (0.2-1); TOT PROT 6.6 g/dl (6.4-8.2)
[2020-05-25] MEDS: CHOLECALCIFEROL (VIT D3) 1,000 UNIT (25 MCG) TABLET PO SCH (10:24)
[2020-05-25] MEDS: FUROSEMIDE 20 MG TABLET (FP) PO SCH (10:24)
[2020-05-25] MEDS: LOSARTAN POTASSIUM 25 MG TABLET PO SCH ×2 (10:24→21:34)
[2020-05-25] MEDS ORDERED: FAMOTIDINE 10 MG TABLET ONE (10:27)
[2020-05-25] MEDS ORDERED: APIXABAN 5 MG TABLET ONE (10:27)
[2020-05-25] MEDS: APIXABAN 5 MG TABLET PO SCH ×2 (10:29→21:34)
[2020-05-25] MEDS: FAMOTIDINE 10 MG TABLET PO SCH (10:29)
[2020-05-25] MEDS ORDERED: CARVEDILOL 3.125 MG TABLET (FP) ONE (10:30)
[2020-05-25] MEDS: CARVEDILOL 3.125 MG TABLET (FP) PO SCH ×2 (10:46→21:33)
[2020-05-25] MEDS ORDERED: LIDOCAINE PATCH REMOVAL MC ONE (11:30)
[2020-05-25 13:31] VITALS: BMI 29.2
[2020-05-25] MEDS: ACETAMINOPHEN 325 MG TABLET (FP) PO PRN (16:56)
[2020-05-26] MEDS: ACETAMINOPHEN 325 MG TABLET (FP) PO PRN (06:23)
[2020-05-26 07:17] LABS: BASO % 0.7 % (0-2.0); EOS % 4.4 % (0-4.5); HEMOGLOBIN 12.9 GM/dL (10.7-15.3); LYMPH % 22.8 % (8-40); MCH 29.1 pg (25.7-33.7); MCHC 33.1 g/dl (32.0-36.0); MEAN CELL VOLUME 88.1 fl (80-96); MEAN PLT VOLUME 8.1 fl (7.5-11.1); MONO % 9.6 % (3.8-10.2); NEUT % 62.5 % (42.8-82.8); PLATELET COUNT 254 K/MM3 (134-434); RBC 4.43 M/mm3 (3.60-5.2); RDW 13.8 % (11.6-15.6); WHITE BLOOD COUNT 7.7 K/mm3 (4.0-10.0)
[2020-05-26 07:40] LABS: POTASSIUM 4.2 mmol/L (3.5-5.1)
[2020-05-26 07:52] LABS: ALBUMIN 3.3 g/dl (3.4-5.0); BLOOD UREA NITROGEN 21.6 mg/dL (7-18); CALCIUM 8.9 mg/dL (8.5-10.1); MAGNESIUM 2.2 mg/dL (1.8-2.4)
[2020-05-26 07:55] LABS: PHOSPHOROUS 4.1 mg/dL (2.5-4.9)
[2020-05-26 07:56] LABS: CREATININE 1.3 mg/dL (0.55-1.3)
[2020-05-26 07:57] LABS: TOT PROT 6.4 g/dl (6.4-8.2)
[2020-05-26] MEDS: LOSARTAN POTASSIUM 25 MG TABLET PO SCH (09:44)
[2020-05-26] MEDS: FAMOTIDINE 10 MG TABLET PO SCH (09:44)
[2020-05-26] MEDS: APIXABAN 5 MG TABLET PO SCH (09:44)
[2020-05-26] MEDS: FUROSEMIDE 20 MG TABLET (FP) PO SCH (09:44)
[2020-05-26] MEDS: CARVEDILOL 3.125 MG TABLET (FP) PO SCH (09:44)
[2020-05-26] MEDS: CHOLECALCIFEROL (VIT D3) 1,000 UNIT (25 MCG) TABLET PO SCH (09:47)
[2020-05-26 15:00] VITALS: BP 128/68; PULSE 84; TEMP 98.2
== END 2020-05-26 17:45 | disposition home or self-care (01) | DRG 312 ==
LOC: JER 14:38 → OBSVTOIN 17:57 → JERBED 17:57 → J4W 05-25 12:20
PROVIDERS: ADMIT Internal Medicine; ATTEND Internal Medicine
DX: R55 Syncope and collapse (principal); I10 Essential (primary) hypertension; E78.5 Hyperlipidemia, unspecified; E78.00 Pure hypercholesterolemia, unspecified; I48.0 Paroxysmal atrial fibrillation; Z95.810 Presence of automatic (implantable) cardiac defibrillator; W19.XXXA Unspecified fall, initial encounter
CPT/HCPCS: 36415; 70450-TC; 71046-TC-FY; 71101-TC-RT-FY; 72125-TC; 72170-TC-FY; 80053; 80061; 81003; 82550; 82962; 83036; 83721; 83735; 83880; 84100; 84443; 84484; 85025; 85027; 85610; 85730; 86850; 86900; 86901; 87086; 93005; 93010; 93306-TC; 93880-TC; 97116-GP; 97161-GP; 99285-25; C9803; U0003

== ENCOUNTER 2020-06-06 13:23 | Inpatient (IN) | payer OTHER, MEDICARE ==
[2020-06-06 14:22] VITALS: BMI 29.0
[2020-06-06] MEDS ORDERED: ONDANSETRON 4 MG/2 ML VIAL IVPUSH ONE (14:40)
[2020-06-06] MEDS ORDERED: ACETAMINOPHEN 1000 MG/100 ML VIAL (NON FORMULARY) IVPB ONE (14:40)
[2020-06-06] MEDS ORDERED: ACETAMINOPHEN INJECTION 100 ML IVPB ONE (14:43)
[2020-06-06] MEDS ORDERED: ONDANSETRON 4 MG/2 ML VIAL ONE (14:43)
[2020-06-06 14:51] LABS: BASO % 0.7 % (0-2.0); EOS % 3.7 % (0-4.5); HEMATOCRIT 40.5 % (32.4-45.2); HEMOGLOBIN 13.3 GM/dL (10.7-15.3); LYMPH % 14.2 % (8-40); MCH 29.3 pg (25.7-33.7); MCHC 32.8 g/dl (32.0-36.0); MEAN CELL VOLUME 89.2 fl (80-96); MEAN PLT VOLUME 7.9 fl (7.5-11.1); MONO % 8.6 % (3.8-10.2); NEUT % 72.8 % (42.8-82.8); PLATELET COUNT 298 K/MM3 (134-434); RBC 4.54 M/mm3 (3.60-5.2); RDW 13.7 % (11.6-15.6); WHITE BLOOD COUNT 9.4 K/mm3 (4.0-10.0)
[2020-06-06 14:59] LABS: INR 1.3 (0.83-1.09); PROTHROMBIN TIME (PATIENT) 15.9 SEC (9.7-13.0)
[2020-06-06 15:02] LABS: ACTIVATED PTT 34.9 SECONDS (25.2-36.5)
[2020-06-06 15:10] LABS: CHLORIDE 106 mmol/L (98-107); SODIUM 142 mmol/L (136-145)
[2020-06-06 15:12] LABS: CALCIUM 9.5 mg/dL (8.5-10.1)
[2020-06-06 15:13] LABS: ALBUMIN 3.7 g/dl (3.4-5.0); ANION GAP 5 MMOL/L (8-16); BLOOD UREA NITROGEN 32.9 mg/dL (7-18); CO2 31 mmol/L (21-32); GLUCOSE,RANDOM 103 mg/dL (74-106)
[2020-06-06 15:16] LABS: CREATININE 1.3 mg/dL (0.55-1.3); SGOT/AST 119 U/L (15-37); SGPT/ALT 79 U/L (13-61)
[2020-06-06 15:17] LABS: BILIRUBIN,TOTAL 0.9 mg/dL (0.2-1); TOT PROT 7.6 g/dl (6.4-8.2)
[2020-06-06 16:00] LABS: ALK PHOS 117 U/L (45-117)
[2020-06-06] MEDS ORDERED: APIXABAN 5 MG TABLET ONE (22:10)
[2020-06-06] MEDS ORDERED: LOSARTAN POTASSIUM 50 MG TABLET ONE (22:11)
[2020-06-06] MEDS: APIXABAN 5 MG TABLET PO SCH (22:13)
[2020-06-06] MEDS: LOSARTAN POTASSIUM 25 MG TABLET PO SCH (22:13)
[2020-06-07] MEDS: LOSARTAN POTASSIUM 25 MG TABLET PO SCH ×2 (10:00→21:27)
[2020-06-07] MEDS: FAMOTIDINE 10 MG TABLET PO SCH (10:00)
[2020-06-07] MEDS: APIXABAN 5 MG TABLET PO SCH (10:00)
[2020-06-07] MEDS ORDERED: APIXABAN 5 MG TABLET ONE (10:17)
[2020-06-07] MEDS ORDERED: FAMOTIDINE 20 MG TABLET ONE (10:18)
[2020-06-07] MEDS ORDERED: LOSARTAN POTASSIUM 50 MG TABLET ONE (10:18)
[2020-06-07] MEDS ORDERED: SODIUM CHLORIDE 1,000 ML IV SCH (19:30)
[2020-06-08 06:30] LABS: BASO % 0.9 % (0-2.0); EOS % 5.6 % (0-4.5); HEMATOCRIT 36.4 % (32.4-45.2); HEMOGLOBIN 11.7 GM/dL (10.7-15.3); LYMPH % 17.3 % (8-40); MCH 28.6 pg (25.7-33.7); MCHC 32.2 g/dl (32.0-36.0); MEAN CELL VOLUME 88.6 fl (80-96); MEAN PLT VOLUME 7.9 fl (7.5-11.1); MONO % 8.6 % (3.8-10.2); NEUT % 67.6 % (42.8-82.8); PLATELET COUNT 275 K/MM3 (134-434); RBC 4.11 M/mm3 (3.60-5.2); RDW 13.6 % (11.6-15.6); WHITE BLOOD COUNT 7.8 K/mm3 (4.0-10.0)
[2020-06-08 07:03] LABS: POTASSIUM 4.5 mmol/L (3.5-5.1)
[2020-06-08 07:06] LABS: BLOOD UREA NITROGEN 28.9 mg/dL (7-18); CALCIUM 8.7 mg/dL (8.5-10.1)
[2020-06-08 07:09] LABS: BILIRUBIN,DIRECT 0.2 mg/dL (0.0-0.2)
[2020-06-08 07:11] LABS: BILIRUBIN,TOTAL 0.6 mg/dL (0.2-1); TOT PROT 6.2 g/dl (6.4-8.2)
[2020-06-08 07:12] LABS: CREATININE 1.3 mg/dL (0.55-1.3)
[2020-06-08] MEDS: LOSARTAN POTASSIUM 25 MG TABLET PO SCH ×2 (10:11→21:04)
[2020-06-08] MEDS: FAMOTIDINE 10 MG TABLET PO SCH (10:11)
[2020-06-08] MEDS ORDERED: DEXTROSE 5%-0.45% SALINE 1,000 ML IV SCH (11:30)
[2020-06-08] MEDS ORDERED: ENOXAPARIN NA (PORCINE) 80 MG/0.8 ML DISP.SYRIN SQ SCH ×2 (12:15→18:00)
[2020-06-08 16:19] LABS: EPI CELLS 20 /uL (0-25.1); HYALINE CASTS 3 /uL (0-3.1); URINE APPEARANCE CLEAR; URINE BILIRUBIN NEGATIVE (NEGATIVE); URINE COLOR YELLOW; URINE GLUCOSE (UA) NEGATIVE (NEGATIVE); URINE KETONE NEGATIVE (NEGATIVE); URINE LEUK ESTERASE 1+ (NEGATIVE); URINE NITRITE POSITIVE (NEGATIVE); URINE PROTEIN NEGATIVE (NEGATIVE); URINE UROBILINOGEN 0.2 mg/dL (0.2-1.0); URINE WBC 191 /uL (0-25.8)
[2020-06-08 17:49] LABS: URINE RBC 46 /uL (0-23.9)
[2020-06-09 08:04] LABS: BASO % 0.9 % (0-2.0); EOS % 7.2 % (0-4.5); HEMATOCRIT 35.1 % (32.4-45.2); HEMOGLOBIN 11.7 GM/dL (10.7-15.3); LYMPH % 17.1 % (8-40); MCH 29.4 pg (25.7-33.7); MCHC 33.2 g/dl (32.0-36.0); MEAN CELL VOLUME 88.7 fl (80-96); MEAN PLT VOLUME 8.3 fl (7.5-11.1); NEUT % 66.8 % (42.8-82.8); PLATELET COUNT 226 K/MM3 (134-434); RBC 3.96 M/mm3 (3.60-5.2); RDW 13.5 % (11.6-15.6); WHITE BLOOD COUNT 6.4 K/mm3 (4.0-10.0)
[2020-06-09 08:30] LABS: CALCIUM 8.5 mg/dL (8.5-10.1)
[2020-06-09 08:31] LABS: BLOOD UREA NITROGEN 22.1 mg/dL (7-18); MAGNESIUM 2.2 mg/dL (1.8-2.4)
[2020-06-09 08:34] LABS: CREATININE 1.1 mg/dL (0.55-1.3); PHOSPHOROUS 3.3 mg/dL (2.5-4.9)
[2020-06-09 08:36] LABS: TOT PROT 6.2 g/dl (6.4-8.2)
[2020-06-09 08:37] LABS: BILIRUBIN,TOTAL 0.6 mg/dL (0.2-1)
[2020-06-09] MEDS: FAMOTIDINE 10 MG TABLET PO SCH (10:36)
[2020-06-09] MEDS: LOSARTAN POTASSIUM 25 MG TABLET PO SCH ×2 (10:37→22:09)
[2020-06-10 06:32] LABS: BASO % 0.8 % (0-2.0); EOS % 6.6 % (0-4.5); HEMATOCRIT 36.1 % (32.4-45.2); HEMOGLOBIN 11.8 GM/dL (10.7-15.3); LYMPH % 15.9 % (8-40); MCH 28.9 pg (25.7-33.7); MCHC 32.7 g/dl (32.0-36.0); MEAN CELL VOLUME 88.2 fl (80-96); MEAN PLT VOLUME 7.8 fl (7.5-11.1); MONO % 8.4 % (3.8-10.2); NEUT % 68.3 % (42.8-82.8); PLATELET COUNT 256 K/MM3 (134-434); RBC 4.09 M/mm3 (3.60-5.2); RDW 13.3 % (11.6-15.6); WHITE BLOOD COUNT 8.1 K/mm3 (4.0-10.0)
[2020-06-10 06:41] LABS: POTASSIUM 4.4 mmol/L (3.5-5.1)
[2020-06-10 06:46] LABS: BLOOD UREA NITROGEN 21.9 mg/dL (7-18); CALCIUM 8.2 mg/dL (8.5-10.1); MAGNESIUM 2.2 mg/dL (1.8-2.4)
[2020-06-10 06:49] LABS: BILIRUBIN,DIRECT 0.2 mg/dL (0.0-0.2); CREATININE 1.1 mg/dL (0.55-1.3)
[2020-06-10 06:50] LABS: PHOSPHOROUS 3.7 mg/dL (2.5-4.9)
[2020-06-10 06:51] LABS: BILIRUBIN,TOTAL 0.5 mg/dL (0.2-1); TOT PROT 6.2 g/dl (6.4-8.2)
[2020-06-10] MEDS ORDERED: PT OWN MED DRAWER 7, Y5N ONE (10:32)
[2020-06-10] MEDS: FAMOTIDINE 10 MG TABLET PO SCH (11:02)
[2020-06-10] MEDS: LOSARTAN POTASSIUM 25 MG TABLET PO SCH ×2 (11:02→21:03)
[2020-06-10] MEDS: APIXABAN 5 MG TABLET PO SCH ×2 (11:02→21:03)
[2020-06-10 12:10] LABS: TRANSGLUTAMINASE IGA < 2 U/mL (0-3)
[2020-06-10] MEDS ORDERED: APIXABAN 5 MG TABLET PO SCH (18:00)
[2020-06-10 21:08] LABS: HEP B CORE AB, TOT Negative (Negative); TRANSGLUTAMINASE IGG < 2 U/mL (0-5)
[2020-06-11 07:54] LABS: ALBUMIN 2.9 g/dl (3.4-5.0)
[2020-06-11 07:58] LABS: BILIRUBIN,TOTAL 1.7 mg/dL (0.2-1)
[2020-06-11] MEDS: FAMOTIDINE 10 MG TABLET PO SCH (10:48)
[2020-06-11] MEDS: LOSARTAN POTASSIUM 25 MG TABLET PO SCH ×2 (10:48→21:18)
[2020-06-11] MEDS: APIXABAN 5 MG TABLET PO SCH (10:49)
[2020-06-11] MEDS ORDERED: PHYTONADIONE 10 MG/1 ML AMP IVPB ONE (16:38)
[2020-06-11] MEDS ORDERED: CEFAZOLIN 2 GM/D5W 2 GM/50 ML ML IVPB SCH (18:00)
[2020-06-11 21:22] VITALS: BP 144/65; PULSE 100; TEMP 98.1
[2020-06-11] MEDS ORDERED: APIXABAN 5 MG TABLET PO ONE (22:00)
== END 2020-06-12 00:40 | disposition short-term general hospital (02) | DRG 445 ==
LOC: JER 13:23 → JERBED 14:44 → J7W 06-07 12:58 → OBSVTOIN 06-08 09:04 → J7W 06-11 15:48
PROVIDERS: ADMIT Internal Medicine; ATTEND Internal Medicine
DX: K80.50 Calculus of bile duct without cholangitis or cholecystitis without obstruction (principal); S22.41XA Multiple fractures of ribs, right side, initial encounter for closed fracture; I50.22 Chronic systolic (congestive) heart failure; J94.2 Hemothorax; R07.89 Other chest pain; I48.0 Paroxysmal atrial fibrillation; Z95.810 Presence of automatic (implantable) cardiac defibrillator; J44.9 Chronic obstructive pulmonary disease, unspecified; R91.1 Solitary pulmonary nodule; N28.1 Cyst of kidney, acquired; R74.01 Elevation of levels of liver transaminase levels; I11.0 Hypertensive heart disease with heart failure; E78.5 Hyperlipidemia, unspecified; W19.XXXA Unspecified fall, initial encounter; Y93.9 Activity, unspecified; Y92.89 Other specified places as the place of occurrence of the external cause; Y99.9 Unspecified external cause status
CPT/HCPCS: 36415; 71045-TC-FY; 71250-TC; 74176-TC; 76705-TC; 80048; 80053; 80076; 81003; 82550; 82728; 82977; 83516; 83540; 83550; 83690; 83735; 83880; 84100; 84484; 85025; 85610; 85730; 86038; 86140; 86704; 86706; 86707; 86708; 86709; 86803; 87340; 93005; 93010; 94010; 97116-GP; 97161-GP; 99285-25; C9803; G0378; J0131; U0003